=== PATIENT | female | born 1960 | race Caucasian/White ===

== ENCOUNTER 2020-04-10 01:52 | Outpatient (CLI) | payer BC, SELFPAY ==
[2020-04-10 18:39] LABS: SARS-CoV-2 RNA PCR Negative
== END 2020-04-10 01:53 | disposition home or self-care (01) ==
LOC: ANHCOVIDDT 01:52
PROVIDERS: PCP Internal Medicine; Visit Provider Internal Medicine Gastroenterology
DX: Z01.812 Encounter for preprocedural laboratory examination (principal); Z11.59 Encounter for screening for other viral diseases
CPT/HCPCS: 87635; C9803; U0003

== ENCOUNTER 2020-04-12 01:40 | Day surgery (SDC) | payer BC, SELFPAY ==
[2020-04-04 13:46] VITALS: BMI 31.2
[2020-04-12 07:51] VITALS: BP 117/75; PULSE 101; RESP 20; TEMP 36.7; O2SAT 99
[2020-04-12] MEDS: LACTATED RINGERS 1,000 ML 150 ML IV CONT (08:13)
[2020-04-12 08:17] LABS: Glucose Point of Care 144 (65-105)
--- NOTE | 2020-04-12 08:39 | WPDANESEPPF ---
Anes - Initial Pre Proc Eval Procedure: Operation Date: 04/12/20 09:00 Proposed Procedures p Screening Colonoscopy - Hi Duffy MD Date/Time: 04/12/20 08:39 Surgeon: Hi Duffy MD Pre Op Diagnosis: neoplasm screening Patient Data Age: 59 Gender: F Height: 5 ft 3 in Weight: 79 kg Last Vital Signs Temp 98.1 F 04/12/20 07:51 Pulse 101 H 04/12/20 07:51 Resp 20 04/12/20 07:51 BP 117/75 04/12/20 07:51 Pulse Ox 99 04/12/20 07:51 Allergies Allergy/AdvReac Type Severity Reaction Status Date / Time Cephalosporins Allergy Mild STATES Verified 04/12/20 08:15 HIVES ON LEGS AT END OF COURSE OF Home Medications Medication Instructions Recorded Confirmed Type fluticasone propionate 2 spray INTRANASAL DAILY 04/04/20 04/04/20 History glycopyrrolate 1 mg PO DAILY 04/04/20 04/04/20 History lansoprazole 30 mg PO DAILY 04/04/20 04/04/20 History levothyroxine 150 mcg PO DAILY 04/04/20 04/04/20 History lisinopril 20 mg PO DAILY 04/04/20 04/04/20 History loratadine-pseudoephedrine 1 tablet PO Q12H 04/04/20 04/04/20 History [Allergy Relief-D (loratadine)] lorazepam 1 mg PO TID PRN 04/04/20 04/04/20 History Laboratory Tests 04/12/20 08:00 POC Capillary Glucose 144 mg/dl H mg/dl (65-105) Patient hx anesthesia problems: none Family hx anesthesia problems: none PMFSH Past Medical History Medical History (Updated 04/12/20 @ 08:39 by Narciso Araiza MD) GERD (gastroesophageal reflux disease) Hypertension Hypothyroid Family History Family History (Updated 04/17/16 @ 23:19 by DOCTOR UNKNOWN) Mother Family history of chronic obstructive pulmonary disease Family history of diabetes mellitus in first degree relative Father Family history of lung cancer Sibling Acute myocardial infarction Other Cerebrovascular accident Diabetes mellitus Family history of cardiovascular disease Hypertension Social History Social History Alcohol intake: current Anes - Eval Final PreProcedure Day of Procedure 04/12/20 08:39 Patient weight: overweight Heart: regular rate and rhythm Lungs: clear to auscultation Airway: Mallampati scale class II Neurological: alert and oriented Last oral intake: >/= 8 hours ASA classification: II Emergent: no Anesthetic plan: proceed Anesthesia type and monitoring: general GIVS and standard monitoring Informed Consent: The patient's anesthetic plan and its attendant risks and benefits were discussed with the patient/family/POA. Questions were solicited and answers provided to the satisfaction of the patient/family/POA.
--- NOTE | 2020-04-12 08:52 | PM.HPGS ---
History of Present Illness History of Present Illness Consent: Risks, benefits, and alternatives have been discussed and questions answered. Patient agrees to proceed with procedure. Chief complaint: neoplasm screening Narrative: Poncho Enriquez is a 59 year old female here for screening colonoscopy. She has a family history of colon cancer into cousins and an aunt. [facility] Past Medical History Medical History GERD (gastroesophageal reflux disease) Hypertension Hypothyroid Family History Family History Mother Family history of chronic obstructive pulmonary disease Family history of diabetes mellitus in first degree relative Father Family history of lung cancer Sibling Acute myocardial infarction Other Cerebrovascular accident Diabetes mellitus Family history of cardiovascular disease Hypertension Social History Social History Alcohol intake: current Meds Home Medications and Allergies Home Medications Medication Instructions Recorded Confirmed Type fluticasone propionate 2 spray INTRANASAL DAILY 04/04/20 04/04/20 History glycopyrrolate 1 mg PO DAILY 04/04/20 04/04/20 History lansoprazole 30 mg PO DAILY 04/04/20 04/04/20 History levothyroxine 150 mcg PO DAILY 04/04/20 04/04/20 History lisinopril 20 mg PO DAILY 04/04/20 04/04/20 History loratadine-pseudoephedrine 1 tablet PO Q12H 04/04/20 04/04/20 History [Allergy Relief-D (loratadine)] lorazepam 1 mg PO TID PRN 04/04/20 04/04/20 History Allergies Allergy/AdvReac Type Severity Reaction Status Date / Time Cephalosporins Allergy Mild STATES Verified 04/12/20 08:15 HIVES ON LEGS AT END OF COURSE OF Vital Signs Vital Signs - 24 hr 04/12/20 07:51 Temperature 36.7 C Pulse Rate 101 H Respiratory Rate 20 Blood Pressure 117/75 Pulse Oximetry 99 Exam Resp: Auscultation: clear to auscultation bilaterally Cardio: Rate: regular rate Rhythm: regular rhythm GI: GI Palp: Yes Soft to palpation and No Tenderness to palpation present (GI) Assessment and Plan Assessment and plan (1) Colon cancer screening: Code(s): Z12.11 - Encounter for screening for malignant neoplasm of colon Status: Acute Assessment and Plan: Colonoscopy with possible biopsy or polypectomy or cautery or injection of substances.
[2020-04-12 09:27] VITALS: BP 107/61; PULSE 92; RESP 20; O2SAT 97
[2020-04-12 09:37] VITALS: BP 106/60; PULSE 84; RESP 20; O2SAT 100
[2020-04-12 09:46] VITALS: BP 106/65; PULSE 75; RESP 20; O2SAT 100
== END 2020-04-12 09:56 | disposition home or self-care (01) ==
PROVIDERS: PCP Internal Medicine; Visit Provider Internal Medicine Gastroenterology
PROC: 0DJD8ZZ Inspection of Lower Intestinal Tract, Via Natural or Artificial Opening Endoscopic (ICD-10-PCS; CPT 45378; principal; 2020-04-12 09:00)
DX: Z12.11 Encounter for screening for malignant neoplasm of colon (principal); K63.5 Polyp of colon; I10 Essential (primary) hypertension; K21.9 Gastro-esophageal reflux disease without esophagitis; E03.9 Hypothyroidism, unspecified; E66.9 Obesity, unspecified; Z68.30 Body mass index [BMI] 30.0-30.9, adult
CPT/HCPCS: 45380; 88305; J2704; J7120

== ENCOUNTER 2020-08-31 09:29 | Outpatient (CLI) | payer BC, SELFPAY ==
--- NOTE | ~2020-08-31 | MM_ITS ---
EXAMINATION: MM screening [facility] BI w sandra HISTORY: Screening mammogram TECHNIQUE: Craniocaudal and mediolateral oblique 3-D tomosynthesis images were obtained and synthetic 2-D images were generated. CAD analysis was submitted and interpreted. COMPARISON: 05/27/2019, 05/20/2018, 05/18/2018, 05/02/2015 BREAST PARENCHYMAL COMPOSITION: There are scattered areas of fibroglandular density. FINDINGS: There is no evidence of suspicious mass, calcification, or architectural distortion to sugg est malignancy in either breast. There has been no suspicious interval change. IMPRESSION: 1. No mammographic evidence of malignancy. 2. Recommend routine screening mammography in one year. BI-RADS Category 1: Negative Reviewed, dictated and finalized at location A. 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
== END 2020-08-31 09:30 | disposition home or self-care (01) ==
LOC: ANHIMG 09:32
PROVIDERS: PCP Internal Medicine; Visit Provider Obstetrics & Gynecology
DX: Z12.31 Encounter for screening mammogram for malignant neoplasm of breast (principal)
CPT/HCPCS: 77063; 77067

== ENCOUNTER 2021-10-11 08:36 | Outpatient (CLI) | payer BC, SELFPAY ==
--- NOTE | ~2021-10-11 | MM_ITS ---
EXAMINATION: MM screening [facility] BI w sandra HISTORY: Screening mammogram TECHNIQUE: Craniocaudal and mediolateral oblique 3-D tomosynthesis images were obtained and synthetic 2-D images were generated. CAD analysis was submitted and interpreted. COMPARISON: 08/31/2020, 05/27/2019, 05/20/2018, 05/18/2018 BREAST PARENCHYMAL COMPOSITION: There are scattered areas of fibroglandular density. FINDINGS: There is no evidence of suspicious mass, calcification, or architectural distortion to sugg est malignancy in either breast. There has been no suspicious interval change. IMPRESSION: 1. No mammographic evidence of malignancy. 2. Recommend routine screening mammography in one year. BI-RADS Category 1: Negative Reviewed, dictated and finalized at location A. 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
== END 2021-10-11 08:37 | disposition home or self-care (01) ==
LOC: ANHIMG 08:37
PROVIDERS: PCP Internal Medicine; Visit Provider Obstetrics & Gynecology
DX: Z12.31 Encounter for screening mammogram for malignant neoplasm of breast (principal)
CPT/HCPCS: 77063; 77067

== ENCOUNTER 2022-12-17 07:22 | Outpatient (CLI) | payer BC, SELFPAY ==
--- NOTE | ~2022-12-17 | MM_ITS ---
EXAMINATION: MM screening [facility] w [facility]ra HISTORY: Screening TECHNIQUE: Craniocaudal and mediolateral oblique 3-D tomosynthesis images were obtained and synthetic 2-D images were generated. CAD analysis was submitted and interpreted. COMPARISON: Comparison to multiple prior studies sequentially, with oldest reviewed study dated 05/02. BREAST PARENCHYMAL COMPOSITION: Breast composed of scattered areas of fibroglandular density FINDINGS: There is no evidence of suspicious mass, calcification, or architectural distortion to sugg est malignancy in either breast. There has been no suspicious interval change. IMPRESSION: 1. No mammographic evidence of malignancy. 2. Recommend routine screening mammography in one year. BI-RADS Category 1: Negative Reviewed, dictated and finalized at location A.
== END 2022-12-17 07:23 | disposition home or self-care (01) ==
LOC: ANHIMG 07:23
PROVIDERS: PCP Internal Medicine; Visit Provider Obstetrics & Gynecology
DX: Z12.31 Encounter for screening mammogram for malignant neoplasm of breast (principal)
CPT/HCPCS: 77063; 77067

== ENCOUNTER 2023-01-22 12:38 | Outpatient (CLI) | payer BC, SELFPAY ==
--- NOTE | ~2023-01-22 | DEXA_ITS ---
Bone Density Report Name: LESLEY BAER Age: 62 Sex: Female Ethnicity: White Date of : 1960 Indication: postmenopausal; screening for osteoporosis; height loss; Referring Provider: LINDSAY, DALTON Vargas Study: Bone densitometry was performed. Exam Date: January 22, 2023 Accession number: [id number] Bone Density: Region BMD T-score Z-score Classification AP Spine(L1-L4) 0.874 -1.6 0.0 Osteopenia Femoral Neck (Left) 0.747 -0.9 0.5 Normal Total Hip (Left) 0.949 0.1 1.1 Normal Femoral Neck (Right) 0.707 -1.3 0.1 Osteopenia Total Hip (Right) 0.948 0.0 1.1 Normal Total Hip Mean 0.948 0.1 1.1 Normal World Health Organization criteria for BMD impression classify patients as: Normal (T-score at or above -1.0), Osteopenia (T-score between -1.0 and -2.5), or Osteoporosis (T-score at or below -2.5). 10-year Fracture Risk(1): Major Osteoporotic Fracture 7.8% Hip Fracture 0.6% Reported Risk Factors: [place] (), Neck BMD=0.707, BMI=29.1 (1) FRAX(R) Version 3.08. Fracture probability calculated for an untreated patient. Fracture probability may be lower if the patient has received treatment. Clinical Information Provided by Patient: Has used the following medications: Vitamin D, Calcium Patient maximum height was 63 Menopause Age: 48 Drinks caffeinated beverages Onset of menses at age 12 Number of children 2 Impression: The patient has low bone mass, based on the Total Spine T-score. The patient has an estimated ten-year risk of hip fracture of 0.6% and an estimated ten-year risk of major fracture of 7.8%, based on the WHO FRAX algorithm. Discussion: BONE DENSITY IS LOW AT ONE OR MORE SKELETAL SITES. This patient's lowest T-score is low at one or more skeletal sites. It meets the World Health Organization's (WHO) criteria for ?low bone mass? (T-score between -1.0 and -2.5). The patient's 10-year risk of fracture as calculated by FRAX is less than the threshold where pharmacological therapy is recommended by the National Osteoporosis Foundation (NOF). However, all treatment decisions require clinical judgment and consideration of individual patient factors, including patient preferences, comorbidities, previous drug use, risk factors not captured in the FRAX model (e.g., frailty, falls, vitamin D deficiency, increased bone turnover, interval significant decline in bone density) and possible under or overestimation of fracture risk by FRAX. The patient should follow a healthful lifestyle (good nutrition with adequate calcium and vitamin D, and appropriate weight-bearing exercise). Follow-Up: Consider repeating this study in 2 to 3 years to reassess this patient's status, or sooner if there is some new clinical indication. Reported by: [facility] on 01/22/2023 1:03:00 PM.
== END 2023-01-22 12:39 | disposition home or self-care (01) ==
LOC: ANHIMG 12:41
PROVIDERS: PCP Internal Medicine; Visit Provider Internal Medicine
DX: M81.0 Age-related osteoporosis without current pathological fracture (principal); M85.88 Other specified disorders of bone density and structure, other site; M85.851 Other specified disorders of bone density and structure, right thigh
CPT/HCPCS: 77080

== ENCOUNTER 2023-06-11 10:52 | Outpatient (CLI) | payer BC, SELFPAY ==
--- NOTE | ~2023-06-11 | XR_ITS ---
EXAMINATION: XR pelvis 1-2V INDICATION: Low back and hip pain TECHNIQUE: AP view of the pelvis is obtained. COMPARISON: None available FINDINGS: Bone alignment is normal. There is no fracture. There is moderate lower lumbar spondylosis. A large volume of colonic stool is present. IMPRESSION: 1. No acute osseous abnormality. Reviewed, dictated and finalized at location B.
--- NOTE | ~2023-06-11 | XR_ITS ---
Lumbosacral Spine: AP and lateral views Clinical History: Pain Findings: The normal lordotic curve is maintained. No fracture identified. There is 4 mm anterolisthe sis of L5 over S1. There is mild degenerative disc narrowing L3 over L4. There is moderate to advance d facet arthropathy from L3 through S1. The sacroiliac joints are normally outlined. Impression: 4 mm anterolisthesis of L5 over S1. [id number] degenerative spondylosis at the lower lumbar spine. Reviewed, dictated and finalized at location M. Impression: 4 mm anterolisthesis of L5 over S1. [id number] degenerative spondylosis at the lower lumbar spine.
== END 2023-06-11 10:53 | disposition home or self-care (01) ==
LOC: ANHIMG 11:02
PROVIDERS: PCP Internal Medicine; Visit Provider Internal Medicine
DX: M47.896 Other spondylosis, lumbar region (principal)
CPT/HCPCS: 72100; 72170

== ENCOUNTER 2024-09-18 13:44 | Outpatient (CLI) | payer BC, SELFPAY ==
--- NOTE | ~2024-09-18 | MM_ITS ---
EXAMINATION: MM screening [facility] BI w sandra HISTORY: Screening mammogram TECHNIQUE: Craniocaudal and mediolateral oblique 3-D tomosynthesis images were obtained and synthetic 2-D images were generated. CAD analysis was submitted and interpreted. COMPARISON: 12/17/2022, 10/11/2021, 08/31/2020 BREAST PARENCHYMAL COMPOSITION:Not Dense. There are scattered areas of fibroglandular density. FINDINGS: No suspicious mass, calcification, or architectural distortion are identified in either samy ast to suggest malignancy. There has been no suspicious interval change. IMPRESSION: No mammographic evidence of malignancy. Recommend routine screening mammography in one year. BI-RADS Category 1: Negative Reviewed, dictated and finalized at location . 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
== END 2024-09-18 13:45 | disposition home or self-care (01) ==
LOC: ANHIMG 13:46
PROVIDERS: PCP Internal Medicine; Visit Provider Obstetrics & Gynecology
DX: Z12.31 Encounter for screening mammogram for malignant neoplasm of breast (principal)
CPT/HCPCS: 77063; 77067

== ENCOUNTER 2025-05-17 12:30 | Outpatient (RCR) | payer BC, SELFPAY ==
--- NOTE | 2025-03-01 10:55 | OPREHPOC ---
Outpatient Therapy Plan of Care This is a Multidisciplinary Plan of Care that may contain components documented by all disciplines (PT, OT, and ST.) PT Problem 1 PT Problem #1 Knowledge Deficit PT Goal 1 Goal / Goal Update 1. Patient to demonstrate independence with HEP for improved self-reliance of symptom management. 2. Patient to decrease subjective reports of pain to <2/10 for improved ADL tolerance. Target Visit 10 PT Problem 2 PT Problem #2 Impaired Range of Motion PT Goal 1 Goal / Goal Update 1. Patient to demonstrate an increase of L knee AROM of 0-120 deg to improve mobility required for gait/stair negotiation. 2. Pt will improve bilateral hip mobility to gain hip extension needed for terminal stance of gait. Target Visit 10 PT Problem 3 PT Problem #3 Impaired Strength PT Goal 1 Goal / Goal Update 1. Patient will demonstrate improved strength of the bilateral hip abductors and extensors to 4/5 on manual muscle testing in order to improve gait stability and stair negotiation. 2. Patient will demonstrate improved strength of the L knee flexors and extensors to 4+/5 on manual muscle testing in order to improve gait stability and stair negotiation. Target Visit 10
--- NOTE | 2025-03-01 10:56 | PTOPEVAL1 ---
Assessment and note entered by José Miguel Doyle PT Evaluation Information Assessment Status Evaluation Diagnosis Giles lateral knee pain ICD-10 Condition Codes (PT) Pain in right knee M25.561,Pain in left knee M25. 562 Onset chronic Subjective Information Pt states she has giles knee pain that has progressively gotten worse due to increased pain in L knee. Pt states she is unable to kneel and has difficulty preforming stairs reciprocally and has difficulty turning/rolling in bed. Pt reports she enjoys to walk, and currently feels limited due to knee pain and swelling. Addtionally pt notes a history of low back pain and hip pain. Reported Pain Level Pain Score 4: Self Report Assessment PT Clinical Summary Patient presents to physical therapy with a primary issue of Giles pain since Left > right. Patient demonstrates hip weakness, knee/hip/lumbar pain, decreased hip/knee mobility, , gait deficit , and decreased flexibility that limit their ability to perform activities of daily living and functional movements. Patient will benefit from skilled physical therapy to address the above listed deficits and return to prior level of function. Home exercise program instructed and written handout provided, exercises tolerated well with no adverse effects to note post-session. Patient was also educated on anatomy, prognosis, home modalities, and plan of care. Plan of Care Interventions Electrical Stimulation,Gait Training,Hot Pack/Cold Pack,Manual Therapy,Neuro Re-education,Patient/ Caregiver Education,Therapeutic Activities, Therapeutic Exercise,Ultrasound,Other PT Services Indicated Yes Treatment Frequency and 2x week 10 visits Duration These treatments will address the objective and functional deficits as defined above. The patient will be advanced safely and appropriately in order for the patient to progress towards his/her prior level of function. Additional exercises will be introduced and as well as a comprehensive home exercise program upon discharge, if needed, ?to ensure carryover of functional gains achieved in the clinic. This treatment plan has been reviewed and agreement upon by the patient.
--- NOTE | 2025-05-17 13:51 | PTOPREEVAL ---
Assessment and note entered by José Miguel Doyle, PT Evaluation Information Assessment Status Re-evaluation Diagnosis Giles lateral knee pain, L hip pain ICD-10 Condition Codes (PT) Pain in right knee M25.561,Pain in left knee M25. 562 Other ICD-10 Condition Codes ( M54.41, M17.0, M76.31, M25.852, M70.61 PT) Onset chronic Subjective Information Pt states she went out of town and was gone most of all of March. 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 Pt states she saw orthopedic MD on the and got some fluid taken out of L knee and a steroid injection. Pt states over the past couple of months she has had increased pain in her low back and L hip Reported Pain Level Pain Score 2,5: Self Report Assessment PT Clinical Summary Patient presents to physical therapy with a new order from orthopedics MD with new diagnosis of lower back pain, sciatica, and hip pain / impingement. Patient demonstrates hip weakness, increased pain with activity , and decreased mobility that limit their ability to perform activities of daily living and functional movements. Patient will benefit from skilled physical therapy to address the above listed deficits and return to prior level of function. Home exercise program instructed and written handout provided, exercises tolerated well with no adverse effects to note post-session Plan of Care Interventions Electrical Stimulation,Gait Training,Hot Pack/Cold Pack,Manual Therapy,Neuro Re-education,Patient/ Caregiver Education,Therapeutic Activities, Therapeutic Exercise,Ultrasound,Other PT Services Indicated Yes Treatment Frequency and 2x week for 8 visits Duration These treatments will address the objective and functional deficits as defined above. The patient will be advanced safely and appropriately in order for the patient to progress towards his/her prior level of function. Additional exercises will be introduced and as well as a comprehensive home exercise program upon discharge, if needed, ?to ensure carryover of functional gains achieved in the clinic. This treatment plan has been reviewed and agreement upon by the patient.
== END 2025-05-30 23:59 | disposition home or self-care (01) ==
LOC: ANHGOSHPT 12:30
PROVIDERS: PCP Family Medicine; Visit Provider Internal Medicine Rheumatology
DX: M70.61 Trochanteric bursitis, right hip (principal); M70.62 Trochanteric bursitis, left hip; M17.0 Bilateral primary osteoarthritis of knee
CPT/HCPCS: 97110; 97112; 97140; 97161; 97164

== ENCOUNTER 2025-07-02 14:45 | Outpatient (RCR) | payer BC, SELFPAY ==
--- NOTE | 2025-07-02 15:38 | PTOPPROG ---
Assessment and note entered by José Miguel Doyle, PT Evaluation Information Assessment Status Progress ICD-10 Condition Codes (PT) Pain in left hip M25.552,Pain in right knee M25. 561,Pain in left knee M25.562 Subjective Information Pt reports her low back and hips have been giving her the most trouble recently. She notes her knees have improved but still feels limited do the increased back pain and more recent muscle spasms. Pt would like to continue physical therapy to address lower back pain Assessment PT Clinical Summary Patient's lower back and hip pain has improved overall as evidenced by advancements in symptoms, mobility, strength, and overall functional use of the extremity. However, some limitations are still present affecting patients functional movements. Patient would benefit from continued skilled physical therapy services to address the above listed impairments and facilitate a return to their prior level of function. Plan of Care Interventions Electrical Stimulation,Gait Training,Hot Pack/Cold Pack,Manual Therapy,Mechanical Traction,Neuro Re- education,Therapeutic Activities,Therapeutic Exercise,Ultrasound,Other PT Services Indicated Yes These treatments will address the objective and functional deficits as defined above. The patient will be advanced safely and appropriately in order for the patient to progress towards his/her prior level of function. Additional exercises will be introduced and as well as a comprehensive home exercise program upon discharge, if needed, ?to ensure carryover of functional gains achieved in the clinic. This treatment plan has been reviewed and agreement upon by the patient.
--- NOTE | 2025-08-03 10:24 | PTOPDC ---
Assessment and note entered by José Miguel Doyle, PT Evaluation Information Assessment Status Discharge - Pt Not Present ICD-10 Condition Codes (PT) Pain in left hip M25.552,Pain in right knee M25. 561,Pain in left knee M25.562 Subjective Information Pt states she is currently sick and going through a lot personally. She does think she needs to continue therapy but states she is just too busy at this time. Assessment PT Clinical Summary Pt was called and requested to be discharged from physical therapy. She would like be discharged at this time and states she has a appointment with PCP August and will discuss re-establishing physical therapy plan of care at that time. Plan of Care PT Services Indicated No
== END 2025-08-03 12:57 | disposition home or self-care (01) ==
LOC: ANHGOSHPT 14:45
PROVIDERS: PCP Family Medicine; Visit Provider Internal Medicine Rheumatology
DX: M25.561 Pain in right knee (principal); M25.562 Pain in left knee; M54.41 Lumbago with sciatica, right side; M17.0 Bilateral primary osteoarthritis of knee; M76.31 Iliotibial band syndrome, right leg; M25.852 Other specified joint disorders, left hip; M70.61 Trochanteric bursitis, right hip
CPT/HCPCS: 97014; 97110; 97112; 97140; G0283

== ENCOUNTER 2025-07-12 00:21 | Day surgery (SDC) | payer BC, SELFPAY ==
--- OUTSIDE RECORDS SUMMARY | 2005-09-15 11:15 | XMS_ITS | Continuity of Care Document ---
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 [address] , [address], [place], [address], [place]. tel:[phone] Family History Family Member Type Diagnosis Age At Onset No Information Payers Payer name Insurance type Covered republican ID Authoriza tion(s) No Information Social History Type Description Quantity Date Captured Comments Sex Female Smoking Status No Information Chief Complaint And Reason For Visit No Information Reason For Referral Reason For Referral No Information History Of Present Illness Encounter Date Complaint History Of Prese nt Illness No Information Functional Status Date Functional Assessmen t No Information Instructions Date Instruction Additional Infor mation No Information Assessments Type Assessment Date No Information Patient Care Teams Name Effective Dates (start - stop) Status Members No Information
--- OUTSIDE RECORDS SUMMARY | 2025-07-12 00:24 | XMS_ITS | Data Portability ---
Author Organization [place] - [facility] [employer], Main Office Address [address] [place] [address] Assessment No assessment recorded. Plan of Treatment Reminders Order Date Submit Date Provider Last Modified By Organization Details Last Modified Time Details Appointments None recorded. Lab glycohemogl obin, total, blood 2024 025 [email or web address] [facility] (Lab), [address] [place], [address], 12:38:00 magnesium, serum or plasma 2024 025 [facility] (Lab), [address] [place], [address], 12:38:00 vitamin B12, serum 2024 025 [facility] (Lab), [address] [place], [address], 12:38:01 TSH, serum or plasma 2024 025 [email or web address] [facility] (Lab), [address] [place], [address], 12:37:59 T4, free, serum 2024 025 [email or web address] [facility] (Lab), [address] [place], [address], 12:38:00 CBC w/ auto diff 2024 025 [email or web address] [facility] (Lab), [address] [place], [address], 5 12:38:00 lipid panel, serum 2024 025 [email or web address] [facility] (Lab), [address] [place], [address], 5 12:38:00 HbA1c (hemoglobin A1c), blood 2023 024 Not available 4 14:27:23 microalbumi n/creatinin e, mass ratio, urine 2023 024 [email or web address] Not available 4 14:27:23 vitamin B12, serum 2023 024 Not available 4 14:27:23 magnesium, serum or plasma 2023 024 [email or web address] Not available 4 14:27:23 T4, free, serum 2023 024 [email or web address] Not available 4 14:27:22 TSH, serum or plasma 2023 024 [email or web address] Not available 4 14:27:23 CBC w/ auto diff 2023 024 [email or web address] Not available 4 14:27:22 CMP, serum or plasma 2023 024 [email or web address] Not available 4 14:27:22 lipid panel, serum 2023 024 [email or web address] Not available 4 14:27:22 Referral None recorded. Procedures None recorded. Surgeries None recorded. Imaging None recorded. Medication Orders triamcinolo ne acetonide 0.1 % topical cream 2022 023 [facility], [facility], [place], [address], 15:59:30 Patient TargetsNo targets recorded. Patient Instructions Encounter Date Encounter Id Patient Instructions Last Modified By Organization Details Last Modified Time 12/11/2022 [id number] Follow-up hypertension -hypothyroidism- type 2 diabetes -GERD all clinically stable at this time. Will continue on current medication blood tests within acceptable ranges. Is due for a mammogram next month so as well as a bone density scan. Will give a small dose some triamcinolone cream for the lesion on the left foot. Will continue on current Rx and follow-up in six months Bone density scan [email or web address] Not available 12/11/2022 15:59:23 06/11/2023 [id number] risk assessment* [email or web address] Not availabl e 06/11/2023 11:22:37 INFLUENZA VACCIN E Next vaccination to be given fall of __2022__ TD/TDAP Patient will get at local pharmacy/health department PNEUMONIA VACCINE Recommended at age 65 SHINGLES Patient will get at local pharmacy/health department MAMMOGRAM: Last Mammogram No screening necessary patient is up to date DEXA SCAN No screening necessary patient is up to date CERVICAL SCREENING/PELVIC EXAMINATION No screening necessary patient is up to date COLORECTAL SCREENING: Last Colonoscopy No screening necessary patient is up to date DEPRESSION SCREENING Negative BMI Overweight try to lose 10% of your body weight NUTRITION Heart Healthy Diet PHYSICAL ACTIVITY Need more exercise/physical activity VISION Your next exam in: goes yearly ALCOHOL USE No alcohol use TOBACCO USE non smoker LUNG CANCER SCREENING Non Smoker-not indicated SEXUALLY ACTIVE HEPATITIS C SCREENING Not indicated GLUCOSE SCREENING up to date LIPID SCREENING up to date [email or web address] Not available 06/11/2023 11:03:17 01/11/2024 [id number] Follow-up hypertension, GERD, two diabetes, hypothyroidism eczematous dermatitis. Plan to check blood work consisting of CBC, CMP, lipid, thyroid, hemoglobin A1c, microalbumin, magnesium and B12 level. Continue on current Rx follow-up in six months Next Appointment: 6 Months Approximate Date: 07/09/2024 Portions of the record may have been created with voice recognition software. Occasional wrong-word or s ound-a-like substitutions may have occurred due to the inherent limitations of voice recognition software. Read the chart carefully and recognize, using context, where substitutions have occurred. [email or web address] Not available 01/11/2024 16:10:40 07/11/2024 [id number] risk assessment* [email or web address] Not availabl e 07/11/2024 11:44:02 INFLUENZA VACCIN E Patient will get at local pharmacy/health department TD/TDAP Patient will get at local pharmacy/health department PNEUMONIA VACCINE Recommended at age 65 SHINGLES Patient will get at local pharmacy/health department MAMMOGRAM: Last Mammogram Recommended today DEXA SCAN No screening necessary patient is up to date CERVICAL SCREENING/PELVIC EXAMINATION No screening necessary patient is up to date COLORECTAL SCREENING: Last Colonoscopy No screening necessary patient is up to date DEPRESSION SCREENING Negative BMI Overweight NUTRITION Eat Heart Healthy Diet PHYSICAL ACTIVITY Need more exercise/physical activity VISION Your next exam in: goes yearly ALCOHOL USE Occasional/Social Use TOBACCO USE non smoker LUNG CANCER SCREENING Non Smoker-not indicated SEXUALLY ACTIVE HEPATITIS C SCREENING Not indicated GLUCOSE SCREENING up to date LIPID SCREENING up to date [email or web address] Not available 07/11/2024 11:22:37 Wellness evaluat ion risk assessment stable. Follow-up for hypertension, hypothyroidism, type 2 diabetes and GERD all clinically stable. Recent blood work looked adequate. Will continue on current medications. Was given a flu shot. Will continue on current therapies and follow-up in six months Follow Up: 6 Months Approximate Date: 01/07/2025 Portions of the record may have been created with voice recognition software. Occasional wrong-word or s ound-a-like substitutions may have occurred due to the inherent limitations of voice recognition software. Read the chart carefully and recognize, using context, where substitutions have occurred. [email or web address] Not available 07/11/2024 11:43:29 01/24/2025 [id number] Follow-up essent ial hypertension, hypothyroidism, type 2 diabetes and GERD all clinically stable. Check blood work consisting of CBC, CMP, lipid, thyroid and hemoglobin A1c level. Is due for a bone density scan. Otherwise clinically stable follow-up in six months Additional Orders - Directives - Recommendations 1. Bone density scan Follow Up: 6 Months Approximate Date: 07/23/2025 Portions of record are template driven. When necessary additional context will be provided. Additionally some portions have been created with voice recognition software. Occasional wrong-word or s ound-a-like substitutions may have occurred due to the inherent limitations of voice recognition software. Read the chart carefully and recognize, using context, where substitutions may have occurred. Created: Clay Madera M.D. 01.24.2025 10:53 AM [email or web address] Not available 01/24/2025 11:53:59 Reason for Referral None Reported. Results Created Date Observation Date Name Description Value Unit Range Abnormal Flag Note LastModifiedBy Organization Detail LastModifiedTime 12/10/1912/10/2022 LIPID PANEL , STAND MICHEAL cholesterol, total 160 mg/dL <200 normal Not Available [address], [address], 12/10/2022 11:52:55 12/10/19 23 12/10/2022 LIPID PANEL , STAND [place]HEAL HDL cholesterol 60 mg/dL > or = 50 normal Not Available [address], [address], 12/10/2022 11:52:55 12/10/19 23 12/10/2022 LIPID PANEL , STAND MICHEAL triglyceride s 100 mg/dL <150 normal Not Available [address], [address], 12/10/2022 11:52:55 12/10/19 23 12/10/2022 LIPID PANEL , ST[place]HEAL LDL-choleste rol 80 mg/dL _(liana c) normal Refer ence range : <100 Олег able range <100 mg/dL for prima ry preve ntion ; <70 mg/dL for patie nts with CHD or diabe tic patie nts with > or = 2 CHD risk facto rs. LDL-C is now calcu lated using the [employer] kins calcu ariel n, which is a valid ated novel metho d parisa zepeda r accur acy than the Fried duc equat ion in the estim ation of LDL-C . Macie garber SS et al. HOLLIE. 2013; 310(1 9): 2061- 2068 (http ://ed ucati on.Bethany tony Veric[employer]. com/f aq/FA Q164) Not Available [address], [address], 12/10/2022 11:52:55 12/10/19 23 12/10/2022 LIPID PANEL , STAND MICHEAL chol/HDLC ratio 2.7 (calc ) <5.0 normal Not Available [address] [address] [facility] [place], [address], 12/10/2022 11:52:55 12/10/1912/10/2022 LIPID PANEL , STAND MICHEAL non HDL cholesterol 100 mg/dL _(liana c) <130 normal For patie nts with diabe thomas plus 1 major ASCVD risk facto r, treat ing to a non-H DL-C goal of <100 mg/dL (LDL- C of <70 mg/dL ) is consi dered a thera peephraimi c optio n. Not Available [address] [address] [facility] , [place], [address], 12/10/2022 11:52:55 12/10/19 23 12/10/2022 ALBUM IN, RANDO M URINE W/CRE ATINI NE creatinine, random urine 120 mg/dL 20-275 normal Not Available [address] [address] [place], [address], 12/10/2022 11:52:56 12/10/19 23 12/10/2022 ALBUM IN, RANDO M URINE W/CRE ATINI NE albumin, urine 0.6 mg/dL see note: normal Refer ence Range : Refer ence Range Not estab lishe d Not Available [address] [address] [place], [address], 12/10/2022 11:52:56 12/10/19 23 12/10/2022 ALBUM IN, RANDO M URINE W/CRE ATINI NE albumin/crea tinine ratio, random urine 5 mcg/m g_cre at <30 normal The ADA defin es abnor malit ies in album in excre tion as follo ws: Album inuri a Categ ory Resul t (mcg/ mg creat inine ) Farzana l to Mildl y incre ased <30 Moder ately incre ased 30-29 9 Sever christiano incre ased > OR = 300 The ADA recom mends that at least two of three speci mens colle cted withi n a 3-6 month perio d be abnor mal befor e consi tiffani g a patie nt to be withi n a diagn ostic categ ory. Not Available [address], [address], 12/10/2022 11:52:56 12/10/1912/10/2022 TSH+F REE T4 TSH 0.02 mIU/L 0.40-4 .50 low Not Available [address], [address], 12/10/2022 11:52:56 12/10/19 23 12/10/2022 TSH+F REE T4 T4, free 1.5 NG/dL 0.8-1. 8 normal Not Available [address], [address], 12/10/2022 11:52:56 12/10/1912/10/2022 MAGNE SIUM magnesium 2.1 mg/dL 1.5-2. 5 normal Not Available [facility] [address], [address], 12/10/2022 11:52:57 12/10/1912/10/2022 COMPR EHENS ROYAL METAB OLIC PANEL glucose 124 mg/dL 65-99 high Fasti ng refer ence inter rickey For someo ne witho ut known diabe thomas, a gluco se value betwe en 100 and 125 mg/dL is consi stent with predi abete s and shoul d be confi rmed with a follo w-up test. Not Available [address] [place], [address], 12/10/2022 11:52:57 12/10/1912/10/2022 COMPR EHENS ROYAL METAB OLIC PANEL urea nitrogen (BUN) 10 mg/dL 7-25 normal Not Available [address], [address], 12/10/2022 11:52:57 12/10/19 23 12/10/2022 COMPR EHENS ROYAL METAB OLIC PANEL creatinine 0.56 mg/dL 0.50-1 .05 normal Not Available [address], [address], 12/10/2022 11:52:57 12/10/1912/10/2022 COMPR EHENS ROYAL METAB OLIC PANEL eGFR 103 mL/mi n/1.7 3m2 > or = 60 normal The eGFR is based on the CKD-E PI 2020 equat ion. To calcu late the new eGFR from a previ ous Creat inine or Cysta tin C resul t, go to https ://sindy adame/diana farnsworth/ kdoqi /gfr% 5Fcal culat or Not Available [address], [address], 12/10/2022 11:52:57 12/10/1912/10/2022 COMPR EHENS ROYAL METAB OLIC PANEL BUN/creatini ne ratio NOT APPLIC ABLE (calc ) 6-22 Not Available [address] [address] [place], [address], 12/10/2022 11:52:57 12/10/19 23 12/10/2022 COMPR EHENS ROYAL METAB OLIC PANEL sodium 139 mmol/ L 135-14 6 normal Not Available [address], [address], 12/10/2022 11:52:57 12/10/1912/10/2022 COMPR EHENS ROYAL METAB OLIC PANEL potassium 4.4 mmol/ L 3.5-5. 3 normal Not Available [address], [address], 12/10/2022 11:52:57 12/10/1912/10/2022 COMPR EHENS ROYAL METAB OLIC PANEL chloride 103 mmol/ L 98-110 normal Not Available [address], [address], 12/10/2022 11:52:57 12/10/1912/10/2022 COMPR EHENS ROYAL METAB OLIC PANEL carbon dioxide 29 mmol/ L 20-32 normal Not Available [address], [address], 12/10/2022 11:52:57 12/10/1912/10/2022 COMPR EHENS ROYAL METAB OLIC PANEL calcium 9.8 mg/dL 8.6-10 .4 normal Not Available [address], [address], 12/10/2022 11:52:57 12/10/19 23 12/10/2022 COMPR EHENS ROYAL METAB OLIC PANEL protein, total 7.1 g/dL 6.1-8. 1 normal Not Available [address], [address], 12/10/2022 11:52:57 12/10/1912/10/2022 COMPR EHENS ROYAL METAB OLIC PANEL albumin 4.4 g/dL 3.6-5. 1 normal Not Available [address], [address], 12/10/2022 11:52:57 12/10/19 23 12/10/2022 COMPR EHENS ROYAL METAB OLIC PANEL globulin 2.7 g/dL_ (calc ) 1.9-3. 7 normal Not Available [address], [address], 12/10/2022 11:52:57 12/10/1912/10/2022 COMPR EHENS ROYAL METAB OLIC PANEL albumin/glob ulin ratio 1.6 (calc ) 1.0-2. 5 normal Not Available [address], [address], 12/10/2022 11:52:57 12/10/1912/10/2022 COMPR EHENS ROYAL METAB OLIC PANEL bilirubin, total 0.5 mg/dL 0.2-1. 2 normal Not Available [address], [address], 12/10/2022 11:52:57 12/10/1912/10/2022 COMPR EHENS ROYAL METAB OLIC PANEL alkaline phosphatase 74 U/L 37-153 normal Not Available [address], [address], 12/10/2022 11:52:57 12/10/1912/10/2022 COMPR EHENS ROYAL METAB OLIC PANEL AST 17 U/L 10-35 normal Not Available [address], [address], 12/10/2022 11:52:57 12/10/1912/10/2022 COMPR EHENS ROYAL METAB OLIC PANEL ALT 20 U/L 6-29 normal Not Available [address], [address], 12/10/2022 11:52:57 12/10/1912/10/2022 CBC (INCL UDES DIFF/ PLT) white blood cell count 5.4 thous and/u L 3.8-10 .8 normal Not Available [address], [address], 12/10/2022 11:52:58 12/10/19 23 12/10/2022 CBC (INCL UDES DIFF/ PLT) red blood cell count 4.41 mo on/uL 3.80-5 .10 normal Not Available [address], [address], 12/10/2022 11:52:58 12/10/1912/10/2022 CBC (INCL UDES DIFF/ PLT) hemoglobin 13.8 g/dL 11.7-1 5.5 normal Not Available [address], [address], 12/10/2022 11:52:58 12/10/1912/10/2022 CBC (INCL UDES DIFF/ PLT) hematocrit 40.2 % 35.0-4 5.0 normal Not Available [address], [address], 12/10/2022 11:52:58 12/10/19 23 12/10/2022 CBC (INCL UDES DIFF/ PLT) MCV 91.2 fL 80.0-1 00.0 normal Not Available [address], [address], 12/10/2022 11:52:58 12/10/19 23 12/10/2022 CBC (INCL UDES DIFF/ PLT) MCH 31.3 pg 27.0-3 3.0 normal Not Available [address], [address], 12/10/2022 11:52:58 12/10/19 23 12/10/2022 CBC (INCL UDES DIFF/ PLT) MCHC 34.3 g/dL 32.0-3 6.0 normal Not Available [address], [address], 12/10/2022 11:52:58 12/10/19 23 12/10/2022 CBC (INCL UDES DIFF/ PLT) RDW 12.1 % 11.0-1 5.0 normal Not Available [address], [address], 12/10/2022 11:52:58 12/10/1912/10/2022 CBC (INCL UDES DIFF/ PLT) platelet count 164 thous and/u L 140-40 0 normal Not Available [address], [address], 12/10/2022 11:52:58 12/10/1912/10/2022 CBC (INCL UDES DIFF/ PLT) MPV 12.2 fL 7.5-12 .5 normal Not Available [address], [address], 12/10/2022 11:52:58 12/10/1912/10/2022 CBC (INCL UDES DIFF/ PLT) absolute neutrophils 2840 cells /uL 1500-7 800 normal Not Available [address], [address], 12/10/2022 11:52:58 12/10/1912/10/2022 CBC (INCL UDES DIFF/ PLT) absolute lymphocytes 1868 cells /uL 850-39 00 normal Not Available [address], [address], 12/10/2022 11:52:58 12/10/1912/10/2022 CBC (INCL UDES DIFF/ PLT) absolute monocytes 475 cells /uL 200-95 0 normal Not Available [address], [address], 12/10/2022 11:52:58 12/10/1912/10/2022 CBC (INCL UDES DIFF/ PLT) absolute eosinophils 167 cells /uL 15-500 normal Not Available [address], [address], 12/10/2022 11:52:58 12/10/1912/10/2022 CBC (INCL UDES DIFF/ PLT) absolute basophils 49 cells /uL 0-200 normal Not Available [address], [address], 12/10/2022 11:52:58 12/10/19 23 12/10/2022 CBC (INCL UDES DIFF/ PLT) neutrophils 52.6 % normal Not Available [address], [address], 12/10/2022 11:52:58 12/10/1912/10/2022 CBC (INCL UDES DIFF/ PLT) lymphocytes 34.6 % normal Not Available [address], [address], 12/10/2022 11:52:58 12/10/1912/10/2022 CBC (INCL UDES DIFF/ PLT) monocytes 8.8 % normal Not Available [address], [address], 12/10/2022 11:52:58 12/10/1912/10/2022 CBC (INCL UDES DIFF/ PLT) eosinophils 3.1 % normal Not Available [address], [address], 12/10/2022 11:52:58 12/10/1912/10/2022 CBC (INCL UDES DIFF/ PLT) basophils 0.9 % normal Not Available [address], [address], 12/10/2022 11:52:58 12/10/1912/10/2022 VITAM IN B12 vitamin B12 735 pg/mL 200-11 00 normal Not Available [address], [address], 12/10/2022 11:52:59 12/10/1912/10/2022 HEMOG LOBIN A1C hemoglobin A1C 6.3 %_of_ total _HGB <5.7 high For someo ne witho ut known diabe thomas, a hemog lobin A1c value betwe en 5.7% and 6.4% is consi stent with predi abete s and shoul d be confi rmed with a follo w-up test. For someo ne with known diabe thomas, a value <7% indic ates that their diabe thomas is well contr olled . A1c targe ts shoul d be indiv idual ized based on durat ion of diabe thomas, age, comor bid condi tions , and other consi derat ions. This assay resul t is consi stent with an incre ased risk of diabe thomas. Curre ntly, no conse nsus exist s regar ding use of hemog lobin A1c for diagn osis of diabe thomas for child yolanda. Not Available [facility] [address] [address] [place], [address], 12/10/2022 11:52:59 05/12/20 24 05/13/2024 LIPID PANEL , STAND MICHEAL cholesterol, total 167 mg/dL <200 normal Not Available [facility] [address], [address], 05/13/2024 15:30:57 05/12/20 24 05/13/2024 LIPID PANEL , STAND MICHEAL HDL cholesterol 61 mg/dL > or = 50 normal Not Available [facility] [address], [address], 05/13/2024 15:30:57 05/12/20 24 05/13/2024 LIPID PANEL , STAND MICHEAL triglyceride s 82 mg/dL <150 normal Not Available [facility] [address], [address], 05/13/2024 15:30:57 05/12/20 24 05/13/2024 LIPID PANEL , STAND MICHEAL LDL-choleste rol 89 mg/dL _(liana c) normal Refer ence range : <100 Олег able range <100 mg/dL for prima ry preve ntion ; <70 mg/dL for patie nts with CHD or diabe tic patie nts with > or = 2 CHD risk facto rs. LDL-C is now calcu lated using the [facility]-Hop kins calcu dellahebert n, which is a valid ated novel metho d provi ding katelyn r accur acy than the Fried duc equat ion in the estim ation of LDL-C . Macie garber SS et al. HOLLIE. 2013; 310(1 9): 2061- 2068 (http ://ed ucati on.Qu estDi [employer]s. com/f aq/FA Q164) Not Available [facility] [address] [address] [place], [address], 05/13/2024 15:30:57 05/12/2005/13/2024 LIPID PANEL , STAND MICHEAL chol/HDLC ratio 2.7 (calc ) <5.0 normal Not Available [address] [address] [place], [address], 05/13/2024 15:30:57 05/12/2005/13/2024 LIPID PANEL , STAND MICHEAL non HDL cholesterol 106 mg/dL _(liana c) <130 normal For patie nts with diabe thomas plus 1 major ASCVD risk facto r, treat ing to a non-H DL-C goal of <100 mg/dL (LDL- C of <70 mg/dL ) is consi dered a therlety rodriguez c optio n. Not Available [address] [address] [address] , [place], [address], 05/13/2024 15:30:57 05/12/2005/13/2024 ALBUM IN, RANDO M URINE W/CRE ATINI NE creatinine, random urine 73 mg/dL 20-275 normal Not Available [facility] [address] [address] [place], [address], 05/13/2024 15:30:58 05/12/20 24 05/13/2024 ALBUM IN, RANDO M URINE W/CRE ATINI NE albumin, urine 0.3 mg/dL see note: normal Refer ence Range : Refer ence Range Not estab lishe d Not Available [address], [address], 05/13/2024 15:30:58 05/12/2005/13/2024 ALBUM IN, RANDO M URINE W/CRE ATINI NE albumin/crea tinine ratio, random urine 4 mg/g_ creat <30 normal The ADA defin es abnor malit ies in album in excre tion as follo ws: Album inuri a Categ ory Resul t (mg/g creat inine ) Farzana l to Mildl y incre ased <30 Moder ately incre ased 30-29 9 Sever christiano incre ased > OR = 300 The ADA recom mends that at least two of three speci mens colle cted withi n a 3-6 month perio d be abnor mal befor e consi tiffani g a patie nt to be withi n a diagn ostic categ ory. Not Available [facility] [address] [place], [address], 05/13/2024 15:30:58 05/12/20 24 05/13/2024 MAGNE SIUM magnesium 2.1 mg/dL 1.5-2. 5 normal Not Available [facility] [address] [place], [place] [address], [address], 05/13/2024 15:30:58 05/12/2005/13/2024 COMPR EHENS ROYAL METAB OLIC PANEL glucose 121 mg/dL 65-99 high Fasti ng refer ence inter rickey For someo ne witho ut known diabe thomas, a gluco se value betwe en 100 and 125 mg/dL is consi stent with predi abete s and shoul d be confi rmed with a follo w-up test. Not Available [facility] [address] [place], [place] [address], [address], 05/13/2024 15:30:58 05/12/20 24 05/13/2024 COMPR EHENS ROYAL METAB OLIC PANEL urea nitrogen (BUN) 12 mg/dL 7-25 normal Not Available [address], [address], 05/13/2024 15:30:58 05/12/20 24 05/13/2024 COMPR EHENS ROYAL METAB OLIC PANEL creatinine 0.55 mg/dL 0.50-1 .05 normal Not Available [address], [address], 05/13/2024 15:30:58 05/12/20 24 05/13/2024 COMPR EHENS ROYAL METAB OLIC PANEL eGFR 103 mL/mi n/1.7 3m2 > or = 60 normal Not Available [address], [address], 05/13/2024 15:30:58 05/12/20 24 05/13/2024 COMPR EHENS ROYAL METAB OLIC PANEL BUN/creatini ne ratio SEE NOTE: (calc ) 6-22 Not Repor shira: BUN and Creat inine are withi n refer ence range . Not Available [address], [address], 05/13/2024 15:30:58 05/12/20 24 05/13/2024 COMPR EHENS ROYAL METAB OLIC PANEL sodium 141 mmol/ L 135-14 6 normal Not Available [address], [address], 05/13/2024 15:30:58 05/12/20 24 05/13/2024 COMPR EHENS ROYAL METAB OLIC PANEL potassium 4.1 mmol/ L 3.5-5. 3 normal Not Available [address], [address], 05/13/2024 15:30:58 05/12/20 24 05/13/2024 COMPR EHENS ROYAL METAB OLIC PANEL chloride 106 mmol/ L 98-110 normal Not Available [address], [address], 05/13/2024 15:30:58 05/12/20 24 05/13/2024 COMPR EHENS ROYAL METAB OLIC PANEL carbon dioxide 29 mmol/ L 20-32 normal Not Available [address], [address], 05/13/2024 15:30:58 05/12/20 24 05/13/2024 COMPR EHENS ROYAL METAB OLIC PANEL calcium 9.4 mg/dL 8.6-10 .4 normal Not Available [address], [address], 05/13/2024 15:30:58 05/12/20 24 05/13/2024 COMPR EHENS ROYAL METAB OLIC PANEL protein, total 6.9 g/dL 6.1-8. 1 normal Not Available [address], [address], 05/13/2024 15:30:58 05/12/20 24 05/13/2024 COMPR EHENS ROYAL METAB OLIC PANEL albumin 4.6 g/dL 3.6-5. 1 normal Not Available [address], [address], 05/13/2024 15:30:58 05/12/20 24 05/13/2024 COMPR EHENS ROYAL METAB OLIC PANEL globulin 2.3 g/dL_ (calc ) 1.9-3. 7 normal Not Available [address], [address], 05/13/2024 15:30:58 05/12/20 24 05/13/2024 COMPR EHENS ROYAL METAB OLIC PANEL albumin/glob ulin ratio 2.0 (calc ) 1.0-2. 5 normal Not Available [facility] [address] [address] [address], [place], [address], 05/13/2024 15:30:58 05/12/2005/13/2024 COMPR EHENS ROYAL METAB OLIC PANEL bilirubin, total 0.5 mg/dL 0.2-1. 2 normal Not Available [address], [address], 05/13/2024 15:30:58 05/12/2005/13/2024 COMPR EHENS ROYAL METAB OLIC PANEL alkaline phosphatase 77 U/L 37-153 normal Not Available [facility] [address], [address], 05/13/2024 15:30:58 05/12/20 24 05/13/2024 COMPR EHENS ROYAL METAB OLIC PANEL AST 16 U/L 10-35 normal Not Available [address], [address], 05/13/2024 15:30:58 05/12/2005/13/2024 COMPR EHENS ROYAL METAB OLIC PANEL ALT 19 U/L 6-29 normal Not Available [address], [address], 05/13/2024 15:30:58 05/12/2005/13/2024 CBC (INCL UDES DIFF/ PLT) white blood cell count 4.6 thous and/u L 3.8-10 .8 normal Not Available [address], [address], 05/13/2024 15:30:59 05/12/2005/13/2024 CBC (INCL UDES DIFF/ PLT) red blood cell count 4.25 mo on/uL 3.80-5 .10 normal Not Available [address], [address], 05/13/2024 15:30:59 05/12/20 24 05/13/2024 CBC (INCL UDES DIFF/ PLT) hemoglobin 13.4 g/dL 11.7-1 5.5 normal Not Available [address], [address], 05/13/2024 15:30:59 05/12/20 24 05/13/2024 CBC (INCL UDES DIFF/ PLT) hematocrit 41.2 % 35.0-4 5.0 normal Not Available [address], [address], 05/13/2024 15:30:59 05/12/2005/13/2024 CBC (INCL UDES DIFF/ PLT) MCV 96.9 fL 80.0-1 00.0 normal Not Available [address], [address], 05/13/2024 15:30:59 05/12/20 24 05/13/2024 CBC (INCL UDES DIFF/ PLT) MCH 31.5 pg 27.0-3 3.0 normal Not Available [address], [address], 05/13/2024 15:30:59 05/12/20 24 05/13/2024 CBC (INCL UDES DIFF/ PLT) MCHC 32.5 g/dL 32.0-3 6.0 normal Not Available [address], [address], 05/13/2024 15:30:59 05/12/2005/13/2024 CBC (INCL UDES DIFF/ PLT) RDW 12.4 % 11.0-1 5.0 normal Not Available [address], [address], 05/13/2024 15:30:59 05/12/20 24 05/13/2024 CBC (INCL UDES DIFF/ PLT) platelet count 176 thous and/u L 140-40 0 normal Not Available [facility] [address], [address], 05/13/2024 15:30:59 05/12/20 24 05/13/2024 CBC (INCL UDES DIFF/ PLT) MPV 11.7 fL 7.5-12 .5 normal Not Available [address], [address], 05/13/2024 15:30:59 05/12/20 24 05/13/2024 CBC (INCL UDES DIFF/ PLT) absolute neutrophils 2360 cells /uL 1500-7 800 normal Not Available [address], [address], 05/13/2024 15:30:59 05/12/2005/13/2024 CBC (INCL UDES DIFF/ PLT) absolute lymphocytes 1592 cells /uL 850-39 00 normal Not Available [address], [address], 05/13/2024 15:30:59 05/12/20 24 05/13/2024 CBC (INCL UDES DIFF/ PLT) absolute monocytes 428 cells /uL 200-95 0 normal Not Available [address], [address], 05/13/2024 15:30:59 05/12/2005/13/2024 CBC (INCL UDES DIFF/ PLT) absolute eosinophils 170 cells /uL 15-500 normal Not Available [facility] [address], [address], 05/13/2024 15:30:59 05/12/2005/13/2024 CBC (INCL UDES DIFF/ PLT) absolute basophils 51 cells /uL 0-200 normal Not Available [address], [address], 05/13/2024 15:30:59 05/12/2005/13/2024 CBC (INCL UDES DIFF/ PLT) neutrophils 51.3 % normal Not Available [address], [address], 05/13/2024 15:30:59 05/12/20 24 05/13/2024 CBC (INCL UDES DIFF/ PLT) lymphocytes 34.6 % normal Not Available [address], [address], 05/13/2024 15:30:59 05/12/20 24 05/13/2024 CBC (INCL UDES DIFF/ PLT) monocytes 9.3 % normal Not Available [address], [address], 05/13/2024 15:30:59 05/12/20 24 05/13/2024 CBC (INCL UDES DIFF/ PLT) eosinophils 3.7 % normal Not Available [address], [address], 05/13/2024 15:30:59 05/12/2005/13/2024 CBC (INCL UDES DIFF/ PLT) basophils 1.1 % normal Not Available [address], [address], 05/13/2024 15:30:59 05/12/2005/13/2024 T4, FREE T4, free 1.5 NG/dL 0.8-1. 8 normal Not Available [address], [address], 05/13/2024 15:30:59 05/12/2005/13/2024 TSH TSH 0.03 mIU/L 0.40-4 .50 low Not Available [address], [address], 05/13/2024 15:30:59 05/12/20 24 05/13/2024 VITAM IN B12 vitamin B12 536 pg/mL 200-11 00 normal Not Available [facility] [address] [address] , [place], [address], 05/13/2024 15:31:00 05/12/20 24 05/13/2024 HEMOG LOBIN A1C hemoglobin A1C 6.2 %_of_ total _HGB <5.7 high For someo ne witho ut known diabe thomas, a hemog lobin A1c value betwe en 5.7% and 6.4% is consi stent with predi abete s and shoul d be confi rmed with a follo w-up test. For someo ne with known diabe thomas, a value <7% indic ates that their diabe thomas is well contr olled . A1c targe ts shoul d be indiv idual ized based on durat ion of diabe thomas, age, comor bid condi tions , and other consi derat ions. This assay resul t is consi stent with an incre ased risk of diabe thomas. Curre ntly, no conse nsus exist s regar ding use of hemog lobin A1c for diagn osis of diabe thomas for child yolanda. This test was perfo rmed on the Bruno rodriguez c503 platf orm. Effec tive , a magdaleno e in test platf orms from the [facility] [facility] to the Bruno rodriguez c503 may have shift ed HbA1c resul ts tashia red to histo rical resul ts. Based on labor atory valid ation testi ng condu cted at [facility] , the Bruno platf orm relat royal to the [facility] platf orm had an avera ge incre ase in HbA1c value of < or = 0.3%. This diffe rence is withi n accep shira varia bilit y estab lishe d by the Urb[employer] castanon [employer] hemog lobin Stand ardiz ation Progr am. Note that not all indiv idual s will have had a shift in their resul ts and direc t tashia rison s betwe en histo rical and curre nt resul ts for testi ng condu cted on diffe rent platf orms is not recom christiano d. Not Available [facility] [address] [address] [place], [address], 05/13/2024 15:31:00 02/09/20 25 02/09/2025 LIPID PANEL , STAND MICHEAL cholesterol, total 175 mg/dL <200 normal Not Available [facility] [address] [address] [place], [address], 02/09/2025 06:02:50 02/09/20 25 02/09/2025 LIPID PANEL , STAND MICHEAL HDL cholesterol 55 mg/dL > or = 50 normal Not Available [facility] [address] [address] [place], [address], 02/09/2025 06:02:50 02/09/20 25 02/09/2025 LIPID PANEL , STAND MICHEAL triglyceride s 129 mg/dL <150 normal Not Available [facility] [address] [address] [place], [address], 02/09/2025 06:02:50 02/09/20 25 02/09/2025 LIPID PANEL , STAND MICHEAL LDL-choleste rol 97 mg/dL _(liana c) normal Refer ence range : <100 Олег able range <100 mg/dL for prima ry preve ntion ; <70 mg/dL for patie nts with CHD or diabe tic patie nts with > or = 2 CHD risk facto rs. LDL-C is now calcu lated using the Macie n-Hop kins harishu ariel n, which is a valid ated novel metho d parisa zepeda r accur acy than the Fried duc equat ion in the estim ation of LDL-C . Macie garber SS et al. HOLLIE. 2013; 310(1 9): 2061- 2068 (http ://ed ucati on.Qu Izabella tony Vericans. com/f aq/FA Q164) Not Available [facility] [address] [address] [place], [address], 02/09/2025 06:02:50 02/09/20 25 02/09/2025 LIPID PANEL , STAND MICHEAL chol/HDLC ratio 3.2 (calc ) <5.0 normal Not Available [address], [address], 02/09/2025 06:02:50 02/09/20 25 02/09/2025 LIPID PANEL , STAND MICHEAL non HDL cholesterol 120 mg/dL _(liana c) <130 normal For patie nts with diabe thomas plus 1 major ASCVD risk facto r, treat ing to a non-H DL-C goal of <100 mg/dL (LDL- C of <70 mg/dL ) is consi minnad a finessea michael beverly optio n. Not Available [address], [address], 02/09/2025 06:02:50 02/09/2002/09/2025 MAGNE SIUM magnesium 2.2 mg/dL 1.5-2. 5 normal Not Available [address], [address], 02/09/2025 06:02:51 02/09/2002/09/2025 CBC (INCL UDES DIFF/ PLT) white blood cell count 4.4 thous and/u L 3.8-10 .8 normal Not Available [address], [address], 02/09/2025 06:02:52 02/09/2002/09/2025 CBC (INCL UDES DIFF/ PLT) red blood cell count 4.24 mo on/uL 3.80-5 .10 normal Not Available [address], [address], 02/09/2025 06:02:52 02/09/2002/09/2025 CBC (INCL UDES DIFF/ PLT) hemoglobin 13.4 g/dL 11.7-1 5.5 normal Not Available [address], [address], 02/09/2025 06:02:52 02/09/2002/09/2025 CBC (INCL UDES DIFF/ PLT) hematocrit 40.5 % 35.0-4 5.0 normal Not Available [address], [address], 02/09/2025 06:02:52 02/09/2002/09/2025 CBC (INCL UDES DIFF/ PLT) MCV 95.5 fL 80.0-1 00.0 normal Not Available [facility] [address], [address], 02/09/2025 06:02:52 02/09/2002/09/2025 CBC (INCL UDES DIFF/ PLT) MCH 31.6 pg 27.0-3 3.0 normal Not Available [address], [address], 02/09/2025 06:02:52 02/09/2002/09/2025 CBC (INCL UDES DIFF/ PLT) MCHC 33.1 g/dL 32.0-3 6.0 normal For adult s, a sligh t decre ase in the calcu lated MCHC value (in the range of 30 to 32 g/dL) is most likel y not clini katie signi moe t; teresa er, it shoul d be inter prete d with cauti on in corre latio n with other red cell naima eters and the patie nt's clini liana condi tion. Not Available [facility] [address], [address], 02/09/2025 06:02:52 02/09/2002/09/2025 CBC (INCL UDES DIFF/ PLT) RDW 11.9 % 11.0-1 5.0 normal Not Available [facility] [address], [address], 02/09/2025 06:02:52 02/09/20 25 02/09/2025 CBC (INCL UDES DIFF/ PLT) platelet count 180 thous and/u L 140-40 0 normal Not Available [address], [address], 02/09/2025 06:02:52 02/09/20 25 02/09/2025 CBC (INCL UDES DIFF/ PLT) MPV 11.3 fL 7.5-12 .5 normal Not Available [address], [address], 02/09/2025 06:02:52 02/09/2002/09/2025 CBC (INCL UDES DIFF/ PLT) absolute neutrophils 2253 cells /uL 1500-7 800 normal Not Available [address], [address], 02/09/2025 06:02:52 02/09/20 25 02/09/2025 CBC (INCL UDES DIFF/ PLT) absolute lymphocytes 1584 cells /uL 850-39 00 normal Not Available [address], [address], 02/09/2025 06:02:52 02/09/2002/09/2025 CBC (INCL UDES DIFF/ PLT) absolute monocytes 405 cells /uL 200-95 0 normal Not Available [address], [address], 02/09/2025 06:02:52 02/09/2002/09/2025 CBC (INCL UDES DIFF/ PLT) absolute eosinophils 110 cells /uL 15-500 normal Not Available [address], [address], 02/09/2025 06:02:52 02/09/20 25 02/09/2025 CBC (INCL UDES DIFF/ PLT) absolute basophils 48 cells /uL 0-200 normal Not Available [address] [place], [address], 02/09/2025 06:02:52 02/09/20 25 02/09/2025 CBC (INCL UDES DIFF/ PLT) neutrophils 51.2 % normal Not Available [facility] [address], [address], 02/09/2025 06:02:52 02/09/2002/09/2025 CBC (INCL UDES DIFF/ PLT) lymphocytes 36.0 % normal Not Available [facility] [address], [address], 02/09/2025 06:02:52 02/09/2002/09/2025 CBC (INCL UDES DIFF/ PLT) monocytes 9.2 % normal Not Available [facility] [address], [address], 02/09/2025 06:02:52 02/09/2002/09/2025 CBC (INCL UDES DIFF/ PLT) eosinophils 2.5 % normal Not Available [facility] [address], [address], 02/09/2025 06:02:52 02/09/2002/09/2025 CBC (INCL UDES DIFF/ PLT) basophils 1.1 % normal Not Available [facility] [address], [address], 02/09/2025 06:02:52 02/09/2002/09/2025 T4, FREE T4, free 1.8 NG/dL 0.8-1. 8 normal Not Available [facility] [address], [address], 02/09/2025 06:02:53 02/09/2002/09/2025 TSH TSH 0.02 mIU/L 0.40-4 .50 low Not Available [facility] [address], [address], 02/09/2025 06:02:54 02/09/20 25 02/09/2025 VITAM IN B12 vitamin B12 570 pg/mL 200-11 00 normal Not Available [facility] [address] [address] , [place], [address], 02/09/2025 06:02:55 02/09/20 25 02/09/2025 HEMOG LOBIN A1C hemoglobin A1C 6.3 %_of_ total _HGB <5.7 high For someo ne witho ut known diabe thomas, a hemog lobin A1c value betwe en 5.7% and 6.4% is consi stent with predi abete s and shoul d be confi rmed with a follo w-up test. For someo ne with known diabe thomas, a value <7% indic ates that their diabe thomas is well contr olled . A1c targe ts shoul d be indiv idual ized based on durat ion of diabe thomas, age, comor bid condi tions , and other consi derat ions. This assay resul t is consi stent with an incre ased risk of diabe thomas. Curre ntly, no conse nsus exist s regar ding use of hemog lobin A1c for diagn osis of diabe thomas for child yolanda. Not Available [facility] [address], [place], [address], 02/09/2025 06:02:56 12/18/1912/17/2022 MAMMO , scree lily, digit al, bilat eral No observ ation record ed. [address], [place], [address], 12/17/2022 09:15:06 01/23/2001/22/2023 DEXA No observ ation record ed. [address], [place], [address], 01/23/2023 13:34:51 06/11/20 23 06/11/2023 XR, lumba r spine , 2 view No observ ation record ed. [address], [place], [address], 06/11/2023 17:01:25 06/11/20 23 06/11/2023 XR, pelvi s, 1 or 2 view No observ ation record ed. [address] [facility] [address], [place], [address], 06/11/2023 17:01:51 09/19/20 24 09/18/2024 MAMMO , scree lily, bilat eral No observ ation record ed. [email or web address] [facility] [address] [facility] [address], [place], [address], 10/06/2024 09:42:46 Result Notes None recorded. Problems Name Problem SNOMED Code Status Onset Date Resolution Date Notes Provider Name and Address Organization Details Recorded Time Disorder of shoulder 449628723 Active Not Available [facility] 3 14:48:34 Benign essential hypertension 1896488 Active Not Available [facility] 3 14:48:34 Gastroesophag eal reflux disease 270766733 Active Not Available [facility] 3 14:48:34 Shoulder joint pain 526484225 Active Not Available [facility] 3 14:48:34 Disorder of back 57558323 Active Not Available [facility] 3 14:48:34 Migraine 67968619 Active Not Available [facility] 3 14:48:34 Hypothyroidis m 88510500 Active Not Available [facility] 3 14:48:34 Type 2 diabetes mellitus 31601836 Active Not Available [facility] 3 14:48:35 Carpal tunnel syndrome 27524933 Active Not Available [facility] 3 14:48:35 Headache 87615272 Active 2016 Not Available [facility] 3 14:48:34 Renewal of prescription Active 2021 Not Available [facility] 3 14:48:34 Eczema 04092782 Active 2022 Clay Madera MD [address] [place] [address] [address], [address], [place], [address] , [facility] 3 15:58:55 Senile osteoporosis 37502113 Active 2022 Molly Jangcali tee, [facility] 5 12:00:21 Umbilical hernia 854263613 Active 2022 Clay Madera MD [address], [address], [place], [address] , [facility] 3 11:17:03 Low back pain 331448411 Active 2022 Molly Fidel null, [place] - [facility] 3 11:27:26 Acute vesicular eczema of foot 134321095 Active 2023 Clay Madera MD [address], [address], [place], [address] , [facility] 4 16:03:51 Pruritic rash 11630236 Active 2023 Trish Taveras null, [facility] 4 16:17:24 Recurrent sinusitis 533560730 Active 2024 Shelly Foote CMA null, [facility] 5 16:11:57 Herpes labialis 2298524 Active 2024 Trish Taveras null, [facility] 5 15:16:44 Problem Notes None recorded. Medical Equipment None Reported. Allergies Allergen ID Allergen Name Allergen Category Reaction Reaction Severity Criticality Documentation Date Start Date Code Code System Note Provider Name and Address Organization Details Recorded Time 62898 metformin medicatio n diarrhea mild Not available 11/18/2022 6809 RxNorm Not Available [facility] 3 14:53:10 Medications Name Sig Start Date Stop Date Status Note LastModified by Organization Details LastModified Time Prescript ion - Prior Authoriza tion Request active [employer] PRIOR AUTH APPROVAL LANSOPRA ZOLE 5 TO 6 Not Available Not Available Not Available celecoxib 200 mg capsule 01/10 completed Not Available Not Available Not Available glycopyrr olate 1 mg tablet TAKE 1 TABLET TWICE A DAY active Not Available Not Available No t Available amoxicill in 500 mg capsule Take 1 capsule 3 times a day by oral route for 10 days. 01/16 completed Not Available Not Available Not Available levothyro xine 137 mcg tablet TAKE 1 TABLET BY MOUTH ONCE DAILY active Not Available Not Available No t Available prednison e 10 mg tablet TAKE 1 TABLET BY MOUTH TWICE DAILY active Not Available Not Available No t Available Glucophag e 500 mg tablet one twice daily 01/16 completed Not Available Not Available Not Available azithromy neelam 250 mg tablet TAKE 2 TABLETS BY MOUTH ON DAY 1, AND THEN TAKE 1 TABLET BY MOUTH ONCE A DAY ON DAY 2 THROUGH DAY 5 active Not Available Not Available No t Available benzonata te 200 mg capsule Take 1 capsule 3 times a day by oral route. 03/08 completed Not Available Not Available Not Available valacyclo vir 1 gram tablet TAKE 1 TABLET BY MOUTH EVERY 12 HOURS DAY ONE. MAY REPEAT ON DAY 3 IF NECESSAR Y. active Not Available Not Available No t Available Claritin 10 mg tablet Take 1 tablet every day by oral route. 10/18 completed Not Available Not Available Not Available meloxicam 15 mg tablet TAKE 1 TABLET BY MOUTH ONCE DAILY 06/11 completed Not Available Not Available Not Available lisinopri l 20 mg tablet TAKE 1 TABLET BY MOUTH ONCE DAILY active Not Available Not Available No t Available ondansetr on HCl 4 mg tablet TAKE 1 TO 2 TABLETS BY MOUTH EVERY 4 HOURS NEEDED active Not Available Not Available No t Available prednison e 20 mg tablet TAKE 3 TABLETS BY MOUTH ONCE DAILY FOR 5 DAYS 12/11 completed Not Available Not Available Not Available aspirin 81 mg tablet,de layed release Take 1 tablet every day by oral route. 01/16 completed Not Available Not Available Not Available tramadol 50 mg tablet TAKE 1 TABLET BY MOUTH ONCE DAILY AT BEDTIME active Not Available Not Available No t Available triamcino lone acetonide 0.1 % topical cream APPLY A THIN LAYER TO THE AFFECTED AREA(S) TWICE DAILY active Not Available Not Available No t Available prednison e 10 mg tablets in a dose pack Take 1 tab by mouth, 3 times a day for 3 daysTake 1 tab by mouth 2 times a day for 2 daysTake 1 tab by mouth once a day for 1 day 04/29 completed Not Available Not Available Not Available lancets nova max lancets test twice a day active Not Available Not Available No t Available Celexa 20 mg tablet Take 1 tablet every day by oral route. active Not Available Not Available No t Available Kenalog 10 mg/mL suspensio n for injection In office injectio n administ ered by the provider 04/29 completed [facility]: [phone] 4-20 Not Available Not Available Not Available lansopraz ole 30 mg capsule,d elayed release TAKE 1 CAPSULE DAILY active Not Available Not Available No t Available levothyro xine 150 mcg tablet TAKE 1 TABLET BY MOUTH ONCE DAILY active Not Available Not Available No t Available sertralin e 25 mg tablet TAKE 1 TABLET BY MOUTH ONCE DAILY active Not Available Not Available No t Available ergocalci ferol (vitamin D2) 1,250 mcg (50,000 unit) capsule Take 12 capsules every week by oral route. active Not Available Not Available No t Available Transderm -Scop 1 mg over 3 days transderm al patch apply one patch every 72 hours 01/24 completed Not Available Not Available Not Available lorazepam 1 mg tablet TAKE 1 TABLET BY MOUTH THREE TIMES DAILY NEEDED active Not Available Not Available No t Available methylpre dnisolone 4 mg tablets in a dose pack Take by oral route as directed 07/28 completed Not Available Not Available Not Available fluticaso ne propionat e 50 mcg/actua tion nasal spray,paulo pension USE 2 SPRAYS IN EACH NOSTRIL DAILY active Not Available Not Available No t Available sertralin e 50 mg tablet TAKE 1 TABLET BY MOUTH ONCE DAILY. START TAKING AFTER FINISHIN G 1 WEEK OF SERTRALI NE 25 MG. active Not Available Not Available No t Available naproxen 500 mg tablet TAKE 1 TABLET BY MOUTH TWICE DAILY 06/11 completed Not Available Not Available Not Available spironola ctone 50 mg tablet TAKE 2 TABLETS DAILY active Not Available Not Available No t Available acyclovir 1 gram 2013 active Not Available Not Available Not Avai lable levothyro xine 04/29 completed Not Available Not Available Not Available lidocaine (PF) 10 mg/mL (1 %) injection solution In office injectio n administ ered by the provider 04/29 completed [facility]: [phone] 6-17 Not Available Not Available Not Available Januvia 100 mg tablet TAKE 1 TABLET DAILY active Not Available Not Available No t Available Nova Max Glucose Test strips Take 1 strip twice a day by miscell. route. active Not Available Not Available No t Available Anti-Itch (menthol- camphor) 0.5 %-0.5 % lotion apply twice a day as needed 2023 active Not Available Not Available Not Avai lable Suprep Bowel Prep Kit 17.5 gram-3.13 gram-1.6 gram oral solution USE DIRECTED PER PHYSICIA N INSTRUCT ION 11/28 completed Not Available Not Available Not Available Allergy-C ongestion Relief-D 10 mg-240 mg tablet,ex tended release 24 hr Take 1 tablet by mouth once daily active Not Available Not Available No t Available Vitals Date Recorded Body height Body mass index (BMI) Body weight Heart rate Body temperature Oxygen saturation Oxygen saturation in Arterial blood by Pulse oximetry Systolic And Diastolic Provider Name and Address Organization Details Last Updated DateTime 3 157.48 cm 28.7 kg/m2 29980 g 89 /min 96.9 [degF] 99 % 99 % 120/60 mm[Hg] [facility] 3 15:46:27 Date Recorded Body height Body mass index (BMI) Body weight Heart rate Body temperature Oxygen saturation Oxygen saturation in Arterial blood by Pulse oximetry Systolic And Diastolic Provider Name and Address Organization Details Last Updated DateTime 4 157.48 cm 28.3 kg/m2 79150.8 2 g 73 /min 97 [degF] 95 % 95 % 120/62 mm[Hg] [facility] 4 15:59:23 Date Recorded Body height Body mass index (BMI) Body weight Heart rate Body temperature Oxygen saturation Oxygen saturation in Arterial blood by Pulse oximetry Systolic And Diastolic Provider Name and Address Organization Details Last Updated DateTime 5 157.48 cm 27.3 kg/m2 52322.0 6 g 94 /min 97 [degF] 96 % 96 % 118/60 mm[Hg] [facility] [employer] 5 11:38:20 Date Recorded Body height Body mass index (BMI) Body weight Heart rate Body temperature Oxygen saturation Oxygen saturation in Arterial blood by Pulse oximetry Systolic And Diastolic Provider Name and Address Organization Details Last Updated DateTime 3 157.48 cm 28.7 kg/m2 11158 g 107 /min 97 [degF] 98 % 98 % 120/80 mm[Hg] Trish Taveras [facility] 3 10:57:49 Date Recorded Body height Body mass index (BMI) Body weight Heart rate Body temperature Oxygen saturation Oxygen saturation in Arterial blood by Pulse oximetry Systolic And Diastolic Provider Name and Address Organization Details Last Updated DateTime 4 157.48 cm 27.1 kg/m2 79522.6 7 g 64 /min 97 [degF] 95 % 95 % 122/80 mm[Hg] KeiryJENNIFER Nayak [facility] 4 11:16:10 Social History None recorded. Functional Status Question Answer Note LastModified by [employer] ion Details LastModified Time What is your level of alcohol consumption? Occasional [id number] Information not available 11/18/2022 Mental Status None recorded. Family History Relationship Description Onset Age of this Age Resolved Age Notes LastModified by Organization Details LastModified Time Unspecified Relation Family history of malignant neoplasm [id number] Not available 11/18/2022 14:45:48 Unspecified Relation Heart disease [id number] Not available 11/18/2022 14:45:48 Unspecified Relation Diabetes mellitus [id number] Not available 11/18/2022 14:45:49 Notes:Mother 83 has emphysem a, diverticulitis and hypertension. Father is 70 's had hypertension and of CA lung. Has two brothers one with hepatitis C and the from some form of myocarditis Medical History Condition Response NERVE DISEASE N BLINDNESS N RHEUMATIC FEVER N KIDNEY STONES N BLADDER PROBLEMS N MRSA N OTHER # 1 N POLIO N LUNG DISEASE/DISORDER N HISTORY OF DRUG ABUSE N COPD N RADIATION / CHEMOTHERAPY N Other # 2 N BLOOD DISEASES N EAR OR HEARING PROBLEMS N MUMPS N SHINGLES N DEPRESSION (INCLUDING POST ) N BOWEL PROBLEMS N FAILED BACK SYNDROME N STROKE/TIA N ULCERS N BENIGN PROSTATIC HYPERPLASIA N MEASLES N HYPOTENSION N MYOCARDIAL INFARCTION N OBESITY N GERD/NAUSEA N ANEURYSM N URINARY/BLADDER/KIDNEY PROBLEMS N CORONARY ARTERY DISEASE (CAD) N Do you have Advance directive? N ADDICTION CONCERNS N Impotence N ENDOMETRIOSIS N USE OF BLOOD THINNERS N SKIN PROBLEMS N GASTROINTESTINAL DISORDER N PERIPHERAL VASCULAR DISEASE N MUSCLE,JOINT OR BONE PROBLEMS N GASTROINTESTINAL BLEEDING N BLOOD CLOTS N ASTHMA N CATARACTS N Abdominal Pain N USE OF NSAIDS Y ERECTILE DYSFUNCTION N ARTERIAL INSUFFICIENCY N VARICOSITIES N GI PROBLEMS N Low Testosterone N INFERTILITY N AIDS/HIV N CHEMOTHERAPY / RADIATION N LIVER DISEASE N MALE HYPOGONADISM N HYPERTENSION N Deficiency N TOURETTE'S N ANXIETY DISORDER N BLOOD TRANSFUSION N ANEMIA/BLOOD DISORDER N CHRONIC EAR INFECTIONS N TUBERCULOSIS N GLAUCOMA N FOOT PROBLEM N DIVERTICULITIS N SLEEP APNEA N CHICKENPOX N ALLERGIES/HAYFEVER N BACK INJECTIONS N INFECTIOUS DISEASE N PROSTATE N HEART ARRHYTHMIA N ESRD N INSOMNIA N HIGH CHOLESTEROL / HYPERLIPIDEMIA Y EYE PROBLEMS N HYPERTHYROIDISM Y PVD N EDEMA N CHRONIC PAIN SYNDROME N HYPOTHYROIDISM N CAROTID BLOCKAGE N CONSTIPATION N BACK / NECK PROBLEMS N HAVE YOU BEEN HOSPITALIZED OR SEEN IN [facility] IN THE PAST YEAR ? N ATHEROSCLEROSIS N BREAST PROBLEMS N DIALYSIS N POLYCYSTIC OVARIES N ECZEMA N OSTEOPOROSIS N ARTHRITIS N NO SIGNIFICANT PAST MEDICAL HISTORY N APPENDICITIS N DIABETES, TYPE N BAD TEETH N VON WILLIBRAND'S DISEASE N ENT N HEARTBURN / REFLUX Y GI N AUTISM SPECTRUM DISORDER (ASD) N POST LAMINECTOMY SYNDROME N HEPATITIS / LIVER DISEASE N GOUT N SLEEP DISORDER N ALZHEIMER'S DISEASE N Brain Problems N DEMENTIA N HERPES N SEIZURES/EPILEPSY N HEADACHES/MIGRAINES Y VASCULAR DISEASE N PACEMAKER N DIZZINESS N HEART DISEASE/HEART PROBLEMS N KIDNEY DISEASE N MULTIPLE SCLEROSIS N NEUROPSYCHOLOGICAL N CANCER: SPECIFY N CARDIAC ARRHYTHMIA N ATRIAL FIBRILLATION N Gall Stones N PULMONARY EMBOLISM N AUTOIMMUNE DISEASE N Gynecological HistoryNo gynecological history recorded. Obstetrics History GPAL:G 0 P 0 0 0 0 Immunizations Vaccine Type Date Status Note Provider Nam e and Address Organization Details Recorded Time Influenza, split virus, trivalent, preservative 3 completed Not Available [facility] 11/18/2022 14:52:55 COVID-19, mRNA, LNP-S, PF, 30 mcg/0.3 mL dose 1 completed Not Available [facility] 11/18/2022 14:52:55 COVID-19 Non-[place] Vaccine, UNSPECIFIED 1 completed Not Available [facility] 11/18/2022 14:52:55 COVID-19 Non-US Vaccine, UNSPECIFIED 1 completed Not Available [facility] 11/18/2022 14:52:55 Influenza, split virus, quadrivalent, PF 8 completed Not Available [facility] 11/18/2022 14:52:55 Influenza, split virus, quadrivalent, PF 8 completed Not Available [facility] 11/18/2022 14:52:55 Past Encounters Encounter ID Performer Location Encounter Start Date Encounter Closed Date Diagnosis/Indication Diagnosis SNOMED-CT Code Diagnosis ICD10 Code Diagnosis IMO Codes Diagnosis Note [id number] Jose Al MD [facility] [place] [address] [place] [address] 11/28/2020 00:00:00 11/28/2020 14:46:54 [id number] Clay Madera MD [facility] Internal [place] [address] [place] [address] 04/29/2021 00:00:00 04/29/2021 12:00:53 [id number] Clay Madera MD [facility] Internal Med [address] [address] [place] [address] 10/31/2021 00:00:00 10/31/2021 16:48:56 [id number] Clay Madera MD [facility] Internal Med [place] [address] [place] [address] 05/29/2022 00:00:00 05/29/2022 16:52:35 [id number] Clay Madera MD [facility] [place] Internal Med [address] [place] [address] 12/11/2022 15:33:34 12/11/2022 16:08:03 Benign essential hypertension 3658919 I10 Hypothyroidism 33740562 E03.9 Type 2 basia betes mellitus 16649766 E11.9 Gastroesop hageal reflux disease 427476569 K21.9 Eczema 49887485 L30.9 [id number] Clay Madera MD [facility] Internal Med [place] [address] [facility] [address] , [place] [address] 06/11/2023 10:52:31 06/11/2023 11:24:55 Adult health examination 605973073 Z00.00 Depression screening 171 515483 Z13.31 Benign ess ential hypertension 2824662 I10 Hypothyroidism 06353945 E03.9 Type 2 basia betes mellitus 59176852 E11.9 Gastroesop hageal reflux disease 565786494 K21.9 Umbilical hernia 7856957 07 K42.9 [id number] Clay Madera MD [facility] Internal Med [place] [address] [facility] [address] , [place] [address] 01/11/2024 15:46:33 01/11/2024 16:18:42 Benign essential hypertension 4324366 I10 Gastroesop hageal reflux disease 122544348 K21.9 Hypothyroidism 88271012 E03.9 Type 2 basia betes mellitus 07921486 E11.9 Acute vesi cular eczema of foot 709985905 L30.8 [id number] Clay Madera MD [facility] Internal Med [address] [facility] [address] , [place] [address] 07/11/2024 11:00:51 07/11/2024 11:57:46 Adult health examination 930242418 Z00.00 Depression screening 171 153937 Z13.31 Gastroesop hageal reflux disease 201372560 K21.9 Benign ess ential hypertension 7418303 I10 Hypothyroidism 00101517 E03.9 Type 2 basia betes mellitus 35471672 E11.9 [id number] Clay Madera MD [facility] Internal Med [facility] [address] [facility], [facility] [address] [place] [address] 01/24/2025 11:08:34 01/24/2025 12:04:43 Benign essential hypertension 5458413 I10 Gastroesop hageal reflux disease 225709499 K21.9 Hypothyroidism 88157641 E03.9 Type 2 basia betes mellitus 93256626 E11.9 Health Concerns Section Related Observation LastModified by Organization Detai ls LastModified Time None Recorded Concern Status LastModified by Organization Details LastModified Time None Recorded Advance Directives Directive None Recorded Payers Insurance Date Sequence Insurance Name Policy Number Policy Vargas Covered Member ID Vargas Member ID Guarantor Name 01/24/2025 1 [place] [id number] Alexander Enriquez [id number] Poncho Enriquez Notes Date Note Type Note Provider Name and Address Organization Details Recorded Time 12/12/19 text/htm l Patient Name: Poncho DavilaanDate Of Service: Wednesday ( 12.11.2022 ): 1960 Age: 62 There has been approximately a 9 lb weight gain since 05/29/2022. This represents approximately a 6.1% change in weight. Weight change attributable to lifestyle changes. Vital Signs:Blood Pressure: Sitting Rt. Arm 120/60Pulse: Sitting 89 /min and RegularRespirations: 12Height 69 in or 1.8 mWeight 157 lb or 71.2 kgBMI 23.2Temperature: 96.9 F or 36.1 CDCCT HAIC: 6.3 Calculated MB mg%Pulse Oximetry: 99 % at rest on no oxygen Chief Complaint: Addressed in HPI Problems or conditions discussed in the HPI were the only ones reviewed during the encounter.Only social and family history addressed in the HPI were reviewed during this encounter. Attendant(s): None Constitutional and Systemic Symptoms: none Medication Reconciliation: from medication list. History of Present Illness #1. Essential Hypertension: Stage: Stage I Interval Neurological Complaints no headaches. No shortness of breath, orthopnea or cardiovascular symptoms. No other symptoms related to end organ damage. Pressure has been under excellent control. Currently normal. No other end organ symptoms or findings. Therapy reviewed regarding management of hypertension and includes salt restriction and Lisinopril. #2. Hx of hypothyroidism currently stable. Heat intolerance: no Fatigue: no Weight gain: no Difficulty concentrating: no Muscle Symptoms: none Skin Texture: normal Skin Color: normal Currently taking synthroid. #3. Type II Diabetes: Has had no polyuria polyphagia or polydipsia. Has had no hypoglycemic like responses. No new history of any numbness, tingling, weakness or visual problems. No nausea, anorexia or other constitutional symptoms. There has been no foot problems or non healing lesions. The last HAIC was DCCT HAIC: 6.3 Calculated MB mg%. Average blood sugars 100-115 mg%. Checking sugars : not at all Medication Types Include: DDP4 inhibitors Secondary complications include none. Macro-vascular complications include none. Therapy reviewed regarding diabetic management and include Januvia Compliance: good Renal Protection: JACQUI inhibitors Lipid management: acceptable without medication Urinary microalbumin: A1 . Ophthalmological: has seen eye doctor within the last year#4. GERD clinically stable currently taking the lansoprazole and doing well. No interval complaints of any exacerbation of any symptomatology. TEST RESULT RANGE UNITSCBC (INCLUDES DIFF/PLT) Date: 12/09/2022WHITE BLOOD CELL COUNT 5.4 3.8-10.8 THOUSAND/ULHEMOGLOBIN 13.8 11.7-15.5 G/DLHEMATOCRIT 40.2 35.0-45.0 %PLATELET COUNT 164 140-400 THOUSAND/ULCOMPREHENSIVE METABOLIC PANEL Date: 12/09/2022SODIUM 139 135-146 MMOL/LPOTASSIUM 4.4 3.5-5.3 MMOL/LGLUCOSE 124 65-99 MG/DLUREA NITROGEN (BUN) 10 7-25 MG/DLCREATININE 0.56 0.50-1.05 MG/DLEGFR 103 > OR = 60 ML/MIN/1.37G4SZNKFTQBK, TOTAL 0.5 0.2-1.2 MG/DLALKALINE PHOSPHATASE 74 37-153 U/LAST 17 10-35 U/LALT 20 6-29 U/LHEMOGLOBIN A1C Date: 12/09/2022HEMOGLOBIN A1C 6.3 <5.7 % OF TOTAL HGBLIPID PANEL, STANDARD Date: 12/09/2022HOLESTEROL, TOTAL 160 <200 MG/DLHDL CHOLESTEROL 60 > OR = 50 MG/DLTRIGLYCERIDES 100 <150 MG/DLLDL-CHOLESTEROL 80 MG/DL (CALC)MAGNESIUM Date: 12/09/2022MAGNESIUM 2.1 1.5-2.5 MG/DLTSH+FREE T4 Date: 12/09/2022TSH 0.02 0.40-4.50 MIU/LT4, FREE 1.5 0.8-1.8 NG/DLVITAMIN B12 Date: 12/09/2022VITAMIN B12 [phone] PG/MLALBUMIN, RANDOM URINE W/CREATININE Date: 12/09/2022LBUMIN/CREATININE RATIO, RANDOM URINE 5 <30 MCG/MG CREATNORMAL TO MILDLY INCREASED <30Medication List Reviewed and Reconciled 12/11/2022spirin 81 MG One Daily For Vascular ProphylaxisGlycopyrrolate 1 MG (TABLET - ORAL) One To Two Tablets Daily As NeededSynthroid 0.15 MG (TABLET - ORAL) One Daily For ThyroidAtivan 1 MG (TABLET - ORAL) One Tid Prn For AnxietyPrevacid 30 MG (CAPSULE, DELAYED REL PELLETS - ORAL) One Daily For RefluxFlonase 0.05 MG/SPRAY (SPRAY, METERED - NASAL) Two Sprays Each Nostril Once DailyLisinopril 20 MG (TABLET - ORAL) Once DailyClaritin 10 MG (TABLET - ORAL) DailyZofran 4 MG (TABLET - ORAL) PrnJanuvia 100 MG (TABLET - ORAL) Once DailySpironolactone 50 MG TABLET One Twice A DayVaccination and Mgvhdxeidhit9238-95 Covid Booster Bbbkim8074-57 Covid Qpfzha2063-56 InfluenzaSurgical HistoryLesion Right Hand And Scalp, Umbilical Hernia, Tubal Ligation and Uterine Ablation, Rt.CTS, Lt. CTS, , , Sinus Surgery, TonsillectomyPreventative Testing Confirmed by Our Uuxnits7012/09/2022 ALBUMIN 4.4 G/DL12/09/2022 MICRO ALBUMIN 0.6 MG/DL12/09/2022 HAIC 6.3 % OF TOTAL HGB 08/31/2020 MAMMOGRAM COLONOSCOPY (5 YEARS) DEXA SCANSocial HistoryDoes not smoke. Drinks socially. 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 Arm 122/80Pulse: Sitting 107 /min and RegularRespirations: 12Height 62 in or 1.6 mWeight 157 lb or 71.2 kgBMI 28.7Temperature: 97 F or 36.1 CDCCT HAIC: 6.4 Calculated MB mg%Pulse Oximetry: 98 % at rest on no oxygen Chief Complaint: Addressed in HPI Problems or conditions discussed in the HPI were the only ones reviewed during the encounter.Only social and family history addressed in the HPI were reviewed during this encounter. Attendant(s): NoneConstitutional and Systemic Symptoms: none Medication Reconciliation: from medication list. Tbdctwfoqjy01/05/2023: DEXA scan all the bones demonstrate some osteopenia of the spine but normal hip. FRAX score which is a measurement of potential fracture is well within acceptable ranges. Continue on any type of vitamin-D and oral calcium supplementations and repeat the exam in approximately two years History of Present Illness In for a well patient check up. Last well patient evaluation was approximately one year. No interval complaints of any major medical problems. No hx of any chest pain, shortness of breath, nausea, vomiting, diarrhea or constitutional symptoms. Also being followed for other chronically monitored problems.Has Had A Mammogram already doneHas Had A Pap Smear already doneImmunizations Up To Date or refuses to takeNo Significant Change In Family HxColonoscopy or Cologuard: not dueFall Risk normalDepression Score: 0Hearing normalVision normalReviewed Smoking and Drug HistoryReviewed Immunization HistoryInstructed on importance of weight on diabetes, heart and other diseases aggravated by obesity. #1. Essential Hypertension: Stage: Stage I Interval Neurological Complaints no headaches, dizziness, weakness, visual changes, ataxia, aphasia and apraxia. No shortness of breath, orthopnea or cardiovascular symptoms. No other symptoms related to end organ damage. Pressure has been under excellent control. Currently normal. No other end organ symptoms or findings. Therapy reviewed regarding management of hypertension and includes salt restriction and Lisinopril. #2. Type II Diabetes: Has had polyuria. Has had no hypoglycemic like responses. No new history of any numbness, tingling, weakness or visual problems. No nausea, anorexia or other constitutional symptoms. There has been no foot problems or non healing lesions. The last HAIC was DCCT HAIC: 6.4 Calculated MB mg%. Average blood sugars 100-115 mg%. Checking sugars : several times a week Medication Types Include: DDP4 inhibitors Secondary complications include none. Macro-vascular complications include none. Therapy reviewed regarding diabetic management and include Elodia Compliance: good Renal Protection: JACQUI inhibitors Lipid management: statins Urinary microalbumin: A1 . Ophthalmological: has seen eye doctor within the last year #3. Hx of esophageal reflux currently stable. Hx of Complications: none The severity, duration and intensity of symptoms have improved. Frequency: most meals Treatment consists medications taken on Prevacid basis. Current therapy includes no medication. There has been no nausea. No change in he frequency or intensity of symptoms. Has had no melena. Has had no hematemesis. Discuss the possibility of trying to reduce the frequency of the use of any PPI inhibitors or H2 antagonist to see if symptoms can be controlled with last intensive therapy #4. Hx of the ventral hernia doing well. No interval c/o of any abdominal pain or symptoms related to obstruction. Fully reducible and no signs of strangulation or incarceration.Medication List Reviewed and Reconciled 3Aspirin 81 MG One Daily For Vascular ProphylaxisGlycopyrrolate 1 MG (TABLET - ORAL) One To Two Tablets Daily As NeededSynthroid 0.15 MG (TABLET - ORAL) One Daily For ThyroidAtivan 1 MG (TABLET - ORAL) One Tid Prn For AnxietyPrevacid 30 MG (CAPSULE, DELAYED REL PELLETS - ORAL) One Daily For RefluxFlonase 0.05 MG/SPRAY (SPRAY, METERED - NASAL) Two Sprays Each Nostril Once DailyLisinopril 20 MG (TABLET - ORAL) Once DailyClaritin 10 MG (TABLET - ORAL) DailyZofran 4 MG (TABLET - ORAL) PrnJanuvia 100 MG (TABLET - ORAL) Once DailySpironolactone 50 MG TABLET One Twice A DayVaccination and Wxmlgakesene9357-66 Covid Booster Qbkcpd7613-38 Covid Xgbnns2230-21 InfluenzaSurgical HistoryLesion Right Hand And Scalp, Umbilical Hernia, Tubal Ligation and Uterine Ablation, Rt.CTS, Lt. CTS, , , Sinus Surgery, TonsillectomyPreventative Testing Confirmed by Our Hzgqqfk6001/22/2023 DEXA SCAN12/17/2022 MAMMOGRAM ALBUMIN 4.4 G/DL12/09/2022 MICRO ALBUMIN 0.6 MG/DL12/09/2022 HAIC 6.3 % OF TOTAL HGB H004/12/2020 COLONOSCOPY (5 YEARS) 04/12/2025Social HistoryDoes not smoke. Drinks socially. 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 This represents approximately a 1.3% change in weight. Weight change attributable to lifestyle changes. Vital Signs:Blood Pressure: Sitting Rt. Arm 120/62Pulse: Sitting 73 /min and RegularRespiratory Rate: 12Height 62 in or 1.6 mWeight 155 lb or 70.3 kgBMI 28.3Temperature: 97 F or 36.1 CPulse Oximetry: 95 % at rest on no oxygen Chief Complaint: Addressed in HPI Problems or conditions discussed in the HPI were the only ones reviewed during the encounter.Only social and family history addressed in the HPI were reviewed during this encounter. Attendant(s): NoneConstitutional and Systemic Symptoms:none Medication Reconciliation: from medication list. Aypixivxbuy07/05/2023: DEXA scan all the bones demonstrate some osteopenia of the spine but normal hip. FRAX score which is a measurement of potential fracture is well within acceptable ranges. Continue on any type of vitamin-D and oral calcium supplementations and repeat the exam in approximately two years 04/09/2023: CT scan of the abdomen pelvis revealed umbilical hernia with omentum with the dominant portion of the hernia into the right midline. Fascial defect measures up to 5.7 cm. Some mild mesenteric panniculitis noted. History of Present Illness #1. Essential Hypertension: Stage: Stage I Interval Neurological Complaints no headaches, dizziness, weakness, visual changes, ataxia, aphasia and apraxia. No shortness of breath, orthopnea or cardiovascular symptoms. No other symptoms related to end organ damage. Pressure has been under fair control. Currently normal. No other end organ symptoms or findings. Therapy reviewed regarding management of hypertension and includes salt restriction and Lisinopril. #2. Hx of esophageal reflux currently stable. Hx of Complications: none The severity, duration and intensity of symptoms have improved. Frequency: most meals Treatment consists medications taken on a regular basis. Current therapy includes Prevacid. There has been no nausea, eructation, vomiting, hematemesis, dysphagia, velopharyngeal insufficiency and odynophagia. No change in he frequency or intensity of symptoms. Has had no melena. Has had no . Discussed use of H2 antagonists and the possibility of trying to reduce the frequency of the use of any PPI inhibitors and try H2 antagonists to see if symptoms can be controlled with lease intensive therapy since a number of complications are associated with chronic prolonged use of PPI inhibitors. #3. Hx of hypothyroidism currently stable. Heat intolerance: no Fatigue: no Weight gain: no Difficulty concentrating: no Muscle Symptoms: none Skin Texture: dry Skin Color: normal Currently taking synthroid. #4. Type II Diabetes: Has had no polyuria polyphagia or polydipsia. Has had no hypoglycemic like responses. No new history of any numbness, tingling, weakness or visual problems. No nausea, anorexia or other constitutional symptoms. There has been no foot problems or non healing lesions. The last HAIC was DCCT HAIC: 6.2 Calculated MB mg%. Average blood sugars 125-150 mg%. Checking sugars : infrequently Medication Types Include: DDP4 inhibitors Secondary complications include none. Macro-vascular complications include none. Therapy reviewed regarding diabetic management and include Januvia Compliance: good Renal Protection: not required at this stage Lipid management: acceptable without medication Urinary microalbumin: A1 . Ophthalmological: has seen eye doctor within the last year #5. Vesicular eczematous changes the the feet consistent with dyshidrosis. Will give a steroid cream for symptomatic therapy.: Active Medication ListAspirin 81 MG One Daily For Vascular ProphylaxisGlycopyrrolate 1 MG (TABLET - ORAL) One To Two Tablets Daily As NeededSynthroid 0.15 MG (TABLET - ORAL) One Daily For ThyroidAtivan 1 MG (TABLET - ORAL) One Tid Prn For AnxietyPrevacid 30 MG (CAPSULE, DELAYED REL PELLETS - ORAL) One Daily For RefluxFlonase 0.05 MG/SPRAY (SPRAY, METERED - NASAL) Two Sprays Each Nostril Once DailyLisinopril 20 MG (TABLET - ORAL) Once DailyClaritin 10 MG (TABLET - ORAL) DailyZofran 4 MG (TABLET - ORAL) PrnJanuvia 100 MG (TABLET - ORAL) Once DailySpironolactone 50 MG TABLET One Twice A Day Vaccination and Wrzjquiscmuu5070-24 Covid Booster Sqakva7761-29 Covid Gtzmbk1333-08 Influenza Surgical Kyakxvq8868-47 Lesion Right Hand And Kfsca2989-73 Umbilical Ykxqie2505-13 Tubal Ligation and Uterine Efslwzkx1034-89 Rt.BLI5608-95 Lt. TLI8501-11 Z-Ltybbbz2348-90 V-Kxclusi9774-42 Sinus Oadxdvf0429-40 Tonsillectomy Preventative Qwdtkln5003/08/2023 HAIC 6.2605 DEXA SCAN12/17/2022 MAMMOGRAM / ALBUMIN 4.4 G/DL N012/09/2022 MICRO ALBUMIN 0.6 MG/DL N004/12/2020 COLONOSCOPY (5 YEARS) 04/12/2025 Social HistoryDoes not smoke. Drinks socially. 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 This represents approximately a 4.5% change in weight. Weight change attributable to lifestyle changes. Vital Signs:Blood Pressure: Sitting Rt. Arm 122/80Pulse: Sitting 64 /min and RegularRespiratory Rate: 16Height 62 in or 1.6 mWeight 148 lb or 67.1 kgBMI 27.1Temperature: 97 F or 36.1 CPulse Oximetry: 95 % at rest on no oxygen Chief Complaint: Addressed in HPI Problems or conditions discussed in the HPI were the only ones reviewed during the encounter.Only social and family history addressed in the HPI were reviewed during this encounter. Attendant(s): NoneConstitutional and Systemic Symptoms:none Medication Reconciliation: from medication list. Jtrhrbbleed38/05/2023: DEXA scan all the bones demonstrate some osteopenia of the spine but normal hip. FRAX score which is a measurement of potential fracture is well within acceptable ranges. Continue on any type of vitamin-D and oral calcium supplementations and repeat the exam in approximately two years 04/09/2023: CT scan of the abdomen pelvis revealed umbilical hernia with omentum with the dominant portion of the hernia into the right midline. Fascial defect measures up to 5.7 cm. Some mild mesenteric panniculitis noted. History of Present Illness In for a well patient check up. Last well patient evaluation was approximately one year. No interval complaints of any major medical problems. No hx of any chest pain, shortness of breath, nausea, vomiting, diarrhea or constitutional symptoms. Also being followed for other chronically monitored problems.Has Had A Mammogram already doneHas Had A Pap Smear dueImmunizations Up To Date or refuses to takeNo Significant Change In Family HxColonoscopy or Cologuard: not dueFall Risk normalDepression Score: 0PHQ-9 Score [IndicatedHearing normalVision correctedReviewed Smoking and Drug HistoryReviewed Immunization HistoryInstructed on importance of weight on diabetes, heart and other diseases aggravated by obesity. #1. Essential Hypertension: Stage: Stage I Interval Neurological Complaints no headaches, dizziness, weakness, visual changes and apraxia. No shortness of breath, orthopnea or cardiovascular symptoms. No other symptoms related to end organ damage. Pressure has been under excellent control. Currently well controlled. No other end organ symptoms or findings. Therapy reviewed regarding management of hypertension and includes salt restriction and Lisinopril. #2. Type II Diabetes: Has had no polyuria polyphagia or polydipsia. Has had no hypoglycemic like responses. No new history of any numbness, tingling, weakness or visual problems. No nausea, anorexia or other constitutional symptoms. There has been no foot problems or non healing lesions. The last HAIC was DCCT HAIC: 6.2 Calculated MB mg%. CGM: No. Average blood sugars not taking blood sugars regularly and instructed on the importance of monitor these values. Checking sugars : approximately once daily. Medication Types Include: DDP4 inhibitors Secondary complications include none. Macro-vascular complications include none. Therapy reviewed regarding diabetic management and include Januvia Compliance: good Renal Protection: JACQUI inhibitors Lipid management: acceptable without medication Urinary microalbumin: A1 . Ophthalmological: has seen eye doctor within the last year. Control: Good Control 6.2 - 7.0 #3. Hx of hypothyroidism currently stable. Heat intolerance: no Fatigue: no Weight gain: no Difficulty concentrating: no Muscle Symptoms: none Skin Texture: normal Skin Color: normal Currently taking synthroid. #4. Hx of esophageal reflux currently stable. Hx of Complications: none The severity, duration and intensity of symptoms have improved. Frequency: most meals Treatment consists medications taken on intermittent basis. Current therapy includes Prevacid. There has been no nausea. No change in he frequency or intensity of symptoms. Has had no melena. Has had no . Discussed use of H2 antagonists and the possibility of trying to reduce the frequency of the use of any PPI inhibitors and try H2 antagonists to see if symptoms can be controlled with lease intensive therapy since a number of complications are associated with chronic prolonged use of PPI inhibitors. Active Medication ListAspirin 81 MG One Daily For Vascular ProphylaxisGlycopyrrolate 1 MG (TABLET - ORAL) One To Two Tablets Daily As NeededSynthroid 0.15 MG (TABLET - ORAL) One Daily For ThyroidAtivan 1 MG (TABLET - ORAL) One Tid Prn For AnxietyPrevacid 30 MG (CAPSULE, DELAYED REL PELLETS - ORAL) One Daily For RefluxFlonase 0.05 MG/SPRAY (SPRAY, METERED - NASAL) Two Sprays Each Nostril Once DailyLisinopril 20 MG (TABLET - ORAL) Once DailyClaritin 10 MG (TABLET - ORAL) DailyZofran 4 MG (TABLET - ORAL) PrnJanuvia 100 MG (TABLET - ORAL) Once DailySpironolactone 50 MG TABLET One Twice A Day Vaccination and Immunization( ) 2024-06 INFLUENZA( ) 2020-12 COVID PFIZER(X) 2021-06 COVID BOOSTER PFIZER Surgical [id number] Bilateral Opmkhizxf8585-69 Ventral Fwhtjx2380-82 Lesion Right Hand And Uqbbp9256-82 Umbilical Tbtlbi6212-02 Tubal Ligation and Uterine Lgyjbayt8444-60 Rt.PNI4209-91 Lt. NII5087-55 I-Gsjrdoa9688-35 D-Ttihttw3137-59 Sinus Ufbgfvp9963-92 Tonsillectomy Preventative Testing( ) 05/12/2024 Albumin 4.6 G/DL N( ) 05/12/2024 Micro Albumin 0.3 MG/DL N( ) 05/12/2024 HAIC 6.2 % OF TOTAL HGB H( ) 01/22/2023 DEXA Scan 01/22/2025(X) 12/17/2022 Mammogram 12/18/2023( ) 04/12/2020 Colonoscopy (5 Years) 04/12/2025 Social HistoryDoes not smoke. Drinks socially. 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 This represents approximately a 1.0% change in weight. Weight change attributable to lifestyle changes. Vital Signs:Blood Pressure: Sitting Rt. Arm 118/60Pulse: Sitting 94 /min and RegularRespiratory Rate: 16Height 62 in or 1.6 mWeight 149.5 lb or 67.8 kgBMI 27.3Temperature: 97 F or 36.1 CDCCT HAIC: 6.2 Calculated MB mg%Pulse Oximetry: 96 % at rest on no oxygen Chief Complaint: Addressed in HPI Problems or conditions discussed in the HPI were the only ones reviewed during the encounter.Only social and family history addressed in the HPI were reviewed during this encounter. Attendant(s): NoneConstitutional and Systemic Symptoms:none Medication Reconciliation: from medication list. Bquclsokzzr39/21/2023: CT scan of the abdomen pelvis revealed umbilical hernia with omentum with the dominant portion of the hernia into the right midline. Fascial defect measures up to 5.7 cm. Some mild mesenteric panniculitis noted. History of Present Illness #1. Essential Hypertension: Stage: Stage I Interval Neurological Complaints no headaches, dizziness, weakness, visual changes, ataxia, aphasia and apraxia. No shortness of breath, orthopnea or cardiovascular symptoms. No other symptoms related to end organ damage. Pressure has been under fair control. Currently normal. No other end organ symptoms or findings. Therapy reviewed regarding management of hypertension and includes salt restriction and Lisinopril and Spironolactone. #2. Hx of hypothyroidism currently stable. Heat intolerance: no Fatigue: no Weight gain: no Difficulty concentrating: no Muscle Symptoms: none Skin Texture: normal Skin Color: normal Currently taking synthroid. #3. Type II Diabetes: Has had no polyuria polyphagia or polydipsia. Has had no hypoglycemic like responses. No new history of any numbness, tingling, weakness or visual problems. No nausea, anorexia or other constitutional symptoms. There has been no foot problems or non healing lesions. The last HAIC was [facility] HAIC: 6.2 Calculated MB mg%. CGM: No. Average blood sugars 116-125 mg%. Checking sugars : infrequently. Medication Types Include: DDP4 inhibitors Secondary complications include none. Macro-vascular complications include none. Therapy reviewed regarding diabetic management and include Januvia Compliance: good Renal Protection: JACQUI inhibitors Lipid management: acceptable without medication Urinary microalbumin: A1 . Ophthalmological: has seen eye doctor within the last year. Control: Good Control 6.2 - 7.0 #4. Hx of esophageal reflux currently stable. Hx of Complications: none The severity, duration and intensity of symptoms have improved. Frequency: most meals Treatment consists medications taken on a regular basis. Current therapy includes Prevacid. There has been no nausea, eructation, vomiting, hematemesis, dysphagia, velopharyngeal insufficiency and odynophagia. No change in he frequency or intensity of symptoms. Has had no melena. Has had no . Discussed use of H2 antagonists and the possibility of trying to reduce the frequency of the use of any PPI inhibitors and try H2 antagonists to see if symptoms can be controlled with lease intensive therapy since a number of complications are associated with chronic prolonged use of PPI inhibitors. Active Medication ListAspirin 81 MG One Daily For Vascular ProphylaxisGlycopyrrolate 1 MG (TABLET - ORAL) One To Two Tablets Daily As NeededSynthroid 0.15 MG (TABLET - ORAL) One Daily For ThyroidAtivan 1 MG (TABLET - ORAL) One Tid Prn For AnxietyPrevacid 30 MG (CAPSULE, DELAYED REL PELLETS - ORAL) One Daily For RefluxFlonase 0.05 MG/SPRAY (SPRAY, METERED - NASAL) Two Sprays Each Nostril Once DailyLisinopril 20 MG (TABLET - ORAL) Once DailyClaritin 10 MG (TABLET - ORAL) DailyZofran 4 MG (TABLET - ORAL) PrnJanuvia 100 MG (TABLET - ORAL) Once DailySpironolactone 50 MG TABLET One Twice A DayUltram 50 MG Take One At Bedtime Vaccination and Immunization( ) 2024-06 INFLUENZA( ) 2020-12 COVID PFIZER(X) 2021-06 COVID BOOSTER PFIZER Surgical Puauanp1676-76 Bilateral Peicffbpk4917-50 Ventral Hernia with Xknw4469-45 Lesion Right Hand And Tspaz7995-52 Umbilical Hfhwgy1045-51 Tubal Ligation and Uterine Dyjeqbht5325-38 Rt.VGV2834-35 Lt. [id number] R-Bwaohfj0946-63 X-Ytlguub3982-13 Sinus Cgazgid0503-02 TonsillectomyPreventative Testing( ) 09/18/2024 Mammogram 09/18/2025( ) 05/12/2024 Albumin 4.6 G/DL N( ) 05/12/2024 Micro Albumin 0.3 MG/DL N( ) 05/12/2024 HAIC 6.2 % OF TOTAL HGB H(X) 01/22/2023 DEXA Scan 01/22/2025( ) 04/12/2020 Colonoscopy (5 Years) 04/12/2025 Social HistoryDoes not smoke. Drinks socially. 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
[2025-07-12 07:07] VITALS: BP 123/78; PULSE 95; RESP 18; TEMP 36.9; O2SAT 98; BMI 26.6
[2025-07-12] MEDS: LACTATED RINGERS 1,000 ML 150 ML IV CONT (07:31)
--- NOTE | 2025-07-12 07:55 | WPDANESEPPF ---
Anes - Initial Pre Proc Eval Procedure: Operation Date: 07/12/25 08:00 Proposed Procedures p Screening Colonoscopy - Jamal Gonzales MD Date/Time: 07/12/25 07:55 Surgeon: Jamal Gonzales MD Pre Op Diagnosis: Personal history of colon polyps, unspecified Patient Data Age: 64 Gender: F Height: 1.57 m Weight: 66.1 kg Last Vital Signs Temp 98.5 F 07/12/25 07:07 Pulse 95 07/12/25 07:07 Resp 18 07/12/25 07:07 BP 123/78 07/12/25 07:07 Pulse Ox 98 07/12/25 07:07 O2 Del Method Room Air 07/12/25 07:07 Allergies Allergy/AdvReac Type Severity Reaction Status Date / Time scopolamine Allergy Intermediate Nausea Verified 07/12/25 07:15 adhesive Allergy Mild Rash Verified 07/12/25 07:15 Cephalosporins Allergy Mild STATES Verified 07/12/25 07:15 HIVES ON LEGS AT END OF COURSE OF Corticosteroids Allergy Mild Redness of Verified 07/12/25 07:15 (Glucocorticoids) Skin metformin Allergy Mild Nausea Verified 07/12/25 07:15 Home Medications ?Medication ?Instructions ?Recorded ?Confirmed ?Type fluticasone propionate 50 2 spray intranasal DAILY 04/04/20 07/12/25 History mcg/actuation nasal spray,suspension lansoprazole 30 mg capsule,delayed 30 mg PO DAILY 04/04/20 07/12/25 History release lisinopril 20 mg tablet 20 mg PO DAILY 04/04/20 07/12/25 History loratadine 5 mg-pseudoephedrine ER 1 tablet PO Q12H 04/04/20 07/12/25 History 120 mg tablet,extended release,12hr (Allergy Relief-D (loratadine)) lorazepam 1 mg tablet 1 mg PO TID PRN Anxiety 04/04/20 07/12/25 History aspirin 81 mg tablet,delayed 81 mg PO DAILY 06/27/24 07/12/25 History release (Adult Low Dose Aspirin) diclofenac sodium 1 % topical gel 2 g topical QID 06/27/24 07/12/25 History ondansetron HCl 4 mg tablet 4 mg PO Q6H PRN nausea and vomiting 06/27/24 07/12/25 History spironolactone 50 mg tablet 50 mg PO DAILY 06/27/24 07/12/25 History sitagliptin phosphate 100 mg 100 mg PO DAILY 03/15/25 07/12/25 History tablet (Januvia) levothyroxine 125 mcg tablet 125 mcg PO DAILY #90 tabs 05/10/25 07/12/25 Rx (Synthroid) sertraline 100 mg tablet 100 mg PO DAILY #90 tabs 05/10/25 07/12/25 Rx Laboratory Tests 07/12/25 07:26 POC Capillary Glucose 165 H mg/dl (65-105) Patient hx anesthesia problems: none Family hx anesthesia problems: none Results Review: All pre-operative results and documents have been reviewed as part of the pre-operative evaluation. [facility] Past Medical History Medical History Diabetes Hypothyroid GERD (gastroesophageal reflux disease) Hypertension Surgical History Surgical History History of cataract extraction with lens replacement History of carpal tunnel surgery bilateral History of section History of hernia repair Family History Family History Mother Family history of chronic obstructive pulmonary disease Family history of diabetes mellitus in first degree relative Father Family history of lung cancer Sibling Acute myocardial infarction Other Cerebrovascular accident Diabetes mellitus Family history of cardiovascular disease Hypertension Social History Social History Smoking status: Never smoker Additional smoking assessment comments: quit 31yr ago Alcohol intake: current Drinks per week: 1 Alcohol use details: once per month Substance use: current Substance use type: marijuana Other substance usage details: daily gummies Last use: 07/03/25 Do You Feel Safe in your Home?: Yes Lack of Transportation: No Lack of Food: Never True Current Housing: I Have Housing Concerned About Future Housing: No Difficulty Paying Gas/Electric Bills: No Difficulty Paying for Meds: No Currently Unemployed: No Education: High School Diploma/GED Difficulty w/ Childcare or Family Care: No Living arrangements: with family Occupation/Education: retired Gender identity (if verbalized by the patient): Female Spiritual care concerns: No Anes - Eval Final PreProcedure Day of Procedure 07/12/25 07:55 Patient weight: normal Lungs: normal air movement Airway: Mallampati scale class II Neurological: alert and oriented Last oral intake: >/= 8 hours ASA classification: II Emergent: no Anesthetic plan: proceed Anesthesia type and monitoring: general GIVS and standard monitoring Results Review: All pre-operative results and documents have been reviewed as part of the pre-operative evaluation. DM fsbs 1665, HTN, hypothyroidism. Informed Consent: The patient's anesthetic plan and its attendant risks and benefits were discussed with the patient/family/POA. Questions were solicited and answers provided to the satisfaction of the patient/family/POA.
--- NOTE | 2025-07-12 08:11 | PM.HPGS ---
History of Present Illness History of Present Illness Consent: Risks, benefits, and alternatives have been discussed and questions answered. Patient agrees to proceed with procedure. Chief complaint: Personal history of colon polyps, unspecified Narrative: Poncho Enriquez is a 64 year old female with colon polyp in 2019 Review of Systems Review of Systems: All systems reviewed & are unremarkable except as noted in HPI and below PMFSH Past Medical History Medical History (Updated 07/12/25 @ 08:11 by Jamal Gonzales MD) Colon polyp Diabetes Hypothyroid GERD (gastroesophageal reflux disease) Hypertension Surgical History Surgical History History of cataract extraction with lens replacement History of carpal tunnel surgery bilateral History of section History of hernia repair Family History Family History Mother Family history of chronic obstructive pulmonary disease Family history of diabetes mellitus in first degree relative Father Family history of lung cancer Sibling Acute myocardial infarction Other Cerebrovascular accident Diabetes mellitus Family history of cardiovascular disease Hypertension Social History Social History Smoking status: Never smoker Additional smoking assessment comments: quit 31yr ago Alcohol intake: current Drinks per week: 1 Alcohol use details: once per month Substance use: current Substance use type: marijuana Other substance usage details: daily gummies Last use: 07/03/25 Do You Feel Safe in your Home?: Yes Lack of Transportation: No Lack of Food: Never True Current Housing: I Have Housing Concerned About Future Housing: No Difficulty Paying Gas/Electric Bills: No Difficulty Paying for Meds: No Currently Unemployed: No Education: High School Diploma/GED Difficulty w/ Childcare or Family Care: No Living arrangements: with family Occupation/Education: retired Gender identity (if verbalized by the patient): Female Spiritual care concerns: No Meds Home Medications and Allergies Home Medications ?Medication ?Instructions ?Recorded ?Confirmed ?Type fluticasone propionate 50 2 spray intranasal DAILY 04/04/20 07/12/25 History mcg/actuation nasal spray,suspension lansoprazole 30 mg capsule,delayed 30 mg PO DAILY 04/04/20 07/12/25 History release lisinopril 20 mg tablet 20 mg PO DAILY 04/04/20 07/12/25 History loratadine 5 mg-pseudoephedrine ER 1 tablet PO Q12H 04/04/20 07/12/25 History 120 mg tablet,extended release,12hr (Allergy Relief-D (loratadine)) lorazepam 1 mg tablet 1 mg PO TID PRN Anxiety 04/04/20 07/12/25 History aspirin 81 mg tablet,delayed 81 mg PO DAILY 06/27/24 07/12/25 History release (Adult Low Dose Aspirin) diclofenac sodium 1 % topical gel 2 g topical QID 06/27/24 07/12/25 History ondansetron HCl 4 mg tablet 4 mg PO Q6H PRN nausea and vomiting 06/27/24 07/12/25 History spironolactone 50 mg tablet 50 mg PO DAILY 06/27/24 07/12/25 History sitagliptin phosphate 100 mg 100 mg PO DAILY 03/15/25 07/12/25 History tablet (Januvia) levothyroxine 125 mcg tablet 125 mcg PO DAILY #90 tabs 05/10/25 07/12/25 Rx (Synthroid) sertraline 100 mg tablet 100 mg PO DAILY #90 tabs 05/10/25 07/12/25 Rx Allergies Allergy/AdvReac Type Severity Reaction Status Date / Time scopolamine Allergy Intermediate Nausea Verified 07/12/25 07:15 adhesive Allergy Mild Rash Verified 07/12/25 07:15 Cephalosporins Allergy Mild STATES Verified 07/12/25 07:15 HIVES ON LEGS AT END OF COURSE OF Corticosteroids Allergy Mild Redness of Verified 07/12/25 07:15 (Glucocorticoids) Skin metformin Allergy Mild Nausea Verified 07/12/25 07:15 Vital Signs Vital Signs - 24 hr 07/12/25 07:07 Temperature 98.5 F Pulse Rate 95 Respiratory Rate 18 Blood Pressure 123/78 Pulse Oximetry 98 Oxygen Delivery Room Air Exam Const: General: comfortable and no acute distress HENMT: Face/Nose/Sinus: Normal nares present Eyes: General: appearance normal, both eyes and all related structures Neck: Neck: no JVD Resp: Auscultation: clear to auscultation bilaterally Cardio: Rate: regular rate Rhythm: regular rhythm GI: Inspection: non-distended GI Palp: Yes Soft to palpation Skin: General skin exam: normal color Extrem: General: normal to inspection Psych: Mental Status: mental status grossly normal Assessment and Plan Assessment and plan (1) Colon polyp: Code(s): K63.5 - Polyp of colon Status: Acute Assessment and Plan: colonoscopy
[2025-07-12 08:33] VITALS: BP 117/65; PULSE 75; RESP 19; O2SAT 99
[2025-07-12 08:43] VITALS: BP 125/65; PULSE 66; RESP 17; O2SAT 99
[2025-07-12 08:53] VITALS: BP 123/76; PULSE 64; RESP 18; O2SAT 100
== END 2025-07-12 09:05 | disposition home or self-care (01) ==
PROVIDERS: PCP Family Medicine; Referring Provider Family Medicine; Visit Provider Internal Medicine Gastroenterology
PROC: 0DJD8ZZ Inspection of Lower Intestinal Tract, Via Natural or Artificial Opening Endoscopic (ICD-10-PCS; CPT 45378; principal; 2025-07-12 08:00)
DX: Z12.11 Encounter for screening for malignant neoplasm of colon (principal); K64.8 Other hemorrhoids; K57.30 Diverticulosis of large intestine without perforation or abscess without bleeding; E11.9 Type 2 diabetes mellitus without complications; E03.9 Hypothyroidism, unspecified; K21.9 Gastro-esophageal reflux disease without esophagitis; I10 Essential (primary) hypertension; F12.90 Cannabis use, unspecified, uncomplicated; Z79.82 Long term (current) use of aspirin; Z79.84 Long term (current) use of oral hypoglycemic drugs; Z98.890 Other specified postprocedural states; Z86.0100 Personal history of colon polyps, unspecified; Z87.891 Personal history of nicotine dependence; Z80.1 Family history of malignant neoplasm of trachea, bronchus and lung; Z82.49 Family history of ischemic heart disease and other diseases of the circulatory system
CPT/HCPCS: 45378; 82948; J2003; J2704; J7120